=== PATIENT | female | born 1965 | race African-American/Black ===

== ENCOUNTER 2019-08-28 17:53 | Inpatient (IN) | payer BC, SELFPAY ==
--- NOTE | ~2019-08-28 | US_ITS ---
EXAMINATION: US venous doppler [facility] DATE: 08/28/2019 18:37 INDICATION: Left lower limb redness and swelling TECHNIQUE: Bell scale images without and with compression and Doppler images of the left lower extrem ity veins were obtained. COMPARISON: None FINDINGS: The left common femoral vein, profunda femoral vein, femoral vein, popliteal vein, peroneal trunk, posterior tibial veins, and greater saphenous vein are patent. Subcutaneous edema is noted. IMPRESSION: 1. Patent left lower extremity veins. No evidence of deep venous thrombosis. Reviewed, dictated and finalized at location A.
--- NOTE | ~2019-08-28 | US_ITS ---
EXAMINATION: US retroperitoneal duplex [facility]td DATE: 09/02/2019 10:02 CDT INDICATION: Renal artery stenosis. TECHNIQUE: Sonographic imaging of the kidneys was performed with a 3.5 MHz transducer. Retroperitone al duplex sonogram of the renal arteries also obtained. FINDINGS: No focal flow abnormalities are seen in the renal arteries on color Doppler. The peak syst olic velocities at the origin of the right and left renal arteries and aorta are 70 cm per second, 76 cm per second, and 70 cm per second, respectively. The velocities and renal to aortic ratios are wit hin normal limits. Percent renal echotexture is normal. Right kidney measures 9.9 cm in length. Left kidney measures 9.9 cm in length. IMPRESSION: 1. No Doppler evidence of renal artery stenosis. Reviewed, dictated and finalized at location A.
[2019-08-28 17:55] VITALS: BP 193/100; PULSE 93; RESP 20; TEMP 36.2; O2SAT 100
--- NOTE | 2019-08-28 18:12 | ED.EXTPRO ---
HPI - Extremity Problem General Chief complaint: Extremity Problem,Nontraumatic <Enoch Clark PA-C - Last Filed: 08/28/19 19:40> Stated complaint: left leg swelling <Enoch Clark PA-C - Last Filed: 08/28/19 19:40> Time Seen by Provider: 08/28/19 18:06 <Enoch Clark PA-C - Last Filed: 08/28/19 19:40> Source: patient <Enoch Clark PA-C - Last Filed: 08/28/19 19:40> Mode of arrival: ambulatory <Enoch Clark PA-C - Last Filed: 08/28/19 19:40> Limitations: no limitations <Enoch Clark PA-C - Last Filed: 08/28/19 19:40> History of Present Illness HPI Narrative: Patient is a 54-year-old female who presents to emergency department for evaluation of swelling to the left leg noting pressure in the leg with mild discomfort denies injury trauma or similar occurrence. Patient presents per private vehicle in no distress. Patient with history of kidney disease and hypertension. Patient denies any family history of clotting disorders . <Enoch Clark PA-C - Last Filed: 08/28/19 19:40> Related Data Home medications: Home Medications Medication Instructions Recorded Confirmed allopurinol 300 mg tablet 300 mg PO DAILY 05/19/19 folic acid 1 mg tablet 1 mg PO DAILY 05/19/19 leflunomide 20 mg tablet 20 mg PO DAILY 05/19/19 metformin 500 mg tablet 500 mg PO BID 05/19/19 diltiazem HCl PO 08/28/19 <Enoch Clark PA-C - Last Filed: 08/28/19 19:40> Allergies/Adverse reactions: Allergies Allergy/AdvReac Type Severity Reaction Status Date / Time No Known Allergies Allergy Verified 08/28/19 18:08 <Enoch Clark PA-C - Last Filed: 08/28/19 19:40> Review of Systems Review of Systems: All systems reviewed & are unremarkable except as noted in HPI and below <Enoch Clark PA-C - Last Filed: 08/28/19 19:40> PMFSH Past Medical History Medical History: Medical History (Updated 08/28/19 @ 19:28 by Enoch Clark PA-C) Chronic kidney disease Hypertension <Enoch Clark PA-C - Last Filed: 08/28/19 19:40> Family History Family History: Family History (Updated 12/02/15 @ 09:24 by DOCTOR UNKNOWN) Mother Diabetes mellitus Other Hypertension <Enoch Clark PA-C - Last Filed: 08/28/19 19:40> Social History Social History: Social History Smoking status: Former smoker Smoking end date: 04/09/92 Alcohol intake: current <Enoch Clark PA-C - Last Filed: 08/28/19 19:40> Exam Narrative: Exam Narrative: GENERAL: Well-appearing, well-nourished, and in no acute distress. HEAD: Normocephalic, atraumatic. EYES: PERRLA and EOMI. ENT: Nares clear, no rhinorrhea or epistaxis. Mucous membranes moist. CHEST: Clear to auscultation. No respiratory distress. No wheezes rales or rhonchi HEART: Regular rate and rhythm. No murmur heard. Normal peripheral pulses. ABDOMEN: Soft, nontender, nondistended EXTREMITIES: Swelling and tenderness of the left calf in comparison to the right with slight erythema over the balbuena SKIN: Warm, dry, no rash. NEURO: No focal deficits. Alert and oriented x3. Neurovascularly intact. Capillary refill less than 2 seconds. Strong dorsal pedialis and posterior tibialis pulses PSYCH: Normal mood and affect. <Enoch Clark PA-C - Last Filed: 08/28/19 19:40> Course Course Emergency Course: Patient in the room resting comfortably in no distress aware of case findings treatment plan and diagnosis agreeing to stay in hospital for IV therapy for her cellulitis <Enoch Clark PA-C - Last Filed: 08/28/19 19:40> [employer] DRIER OPERATOR/PA Physician Supervision For this patient encounter, I reviewed the [employer]OTHESPIN DRIER OPERATOR or PA documentation, treatment plan, and medical decision making; and I had [id number] time with this patient. PAtient is sitting in bed comfortably with left leg swelling with erythema. She is to be admitted for cellulitis.
[2019-08-28 18:55] LABS: Basophils Absolute Auto 0.1 K/mm3 (0.0-0.1); Basophils Percent Auto 0.5 % (0.2-1.2); Eosinophils Absolute Auto 0.3 K/mm3 (0-0.3); Eosinophils Percent Auto 2.7 % (0-4.4); Hematocrit 45.6 % (37.0-47.0); Hemoglobin 15.2 g/dL (12.0-15.0); Immature Granulocyte Absolute 0.04 K/mm3 (0.00-0.031); Immature Granulocyte Percent A 0.4 % (0-0.5); Lymphocytes Absolute Auto 0.92 K/mm3 (0.9-3.2); Lymphocytes Percent Auto 8.4 % (18.3-44.2); Mean Corpuscular HGB Conc 33.3 g/dl (32-36); Mean Corpuscular Hemoglobin 30.4 pg (26-34); Mean Corpuscular Volume 91.2 fl (80-100); Mean Platelet Volume 10.8 fl (7.4-10.4); Monocytes Absolute Auto 0.5 K/mm3 (0.1-0.6); Monocytes Percent Auto 4.2 % (2.6-8.5); Neutrophils Absolute Auto 9.2 K/mm3 (1.3-6.7); Neutrophils Percent Auto 83.8 % (45.5-73.1); Platelet Count Result 148 k/mm3 (150-375); Red Cell Distribution Width 13.2 % (11.5-14.5)
[2019-08-28 19:01] LABS: INR 0.9; Prothrombin Time 11.4 Seconds (11.1-14.7)
[2019-08-28 19:02] LABS: Partial Thromboplastin Time 25.8 SECONDS (22.3-36.8)
[2019-08-28 19:03] LABS: Blood Urea Nitrogen 22 mg/dL (7-17); Calcium 9.3 mg/dL (8.4-10.2); Carbon Dioxide 23 mmol/L (22-30); Chloride 107 mmol/L (98-107); Estimated CRCL calculation 35 ml/min; Estimated Glomerular Filt Rate 30; Glucose 101 mg/dL (65-105); Potassium 3.3 mmol/L (3.4-5.0); Sodium 139 mmol/L (137-145)
[2019-08-28] MEDS: SODIUM CHLORIDE 0.9% IV 1,000 ML 75 ML IV CONT (20:23)
[2019-08-28] MEDS: hydrALAZINE HCL 20 MG/ML VIAL 10 MG IV PUSH ×2 (20:34→22:19)
[2019-08-28 20:45] VITALS: BP 175/117; PULSE 88; RESP 18; TEMP 36.6; O2SAT 97; BMI 37.8
--- NOTE | 2019-08-28 21:07 | ADMGEN ---
This patient, Madhuri Benz, was admitted to [facility] Surg Room 302-01. Patient/family oriented to hospital policies and general routines including ID bracelet, bed and alarms, visiting hours, pain management, procedures, bathroom and other care routines, personal items, smoking policy, room service/diet, and visiting hours. Valuables list has been completed. Information on how to activate the Rapid Response Team has been discussed. Patient/Family are encouraged to report perceived risks to care and to ask questions if they do not understand what they are told or what they should do.
[2019-08-28] MEDS: FAMOTIDINE 20 MG/2 ML VIAL IV PUSH (21:28)
--- NOTE | 2019-08-28 21:48 | PM.IMHP ---
H&P: HPI History of Present Illness Chief complaint: LLE swelling and redness++ Narrative: This is a 54 year old Diabetic female with known HTN, hypothyroidism and CKD who presented to the hospital with a complaint of left lower extremity swelling which started yesterdaywhile she was at work. She initially noted that she had discomfort on the lateral side of her LLE. The patient called her PCP's office and was told that her PCP wouldn't be seeing any patients until October. She was advised to come to the ER for evaluation. She reports that last night she put a heating pad on her leg. Today she noticed she has redness involving the anterior aspect of her lower leg. She denies any recent LLE trauma. She also denies any fevers, chills, chest pain, shortness of breath, nausea, vomiting, diarrhea, dysuria, Routine labs were obtained in the ER tonight which were virtually unremarkable. Venous doppler U/S was negative for a DVT. The patient was started on IV antibiotics for presumed cellulitis and we were asked to admit the patient to the hospital for further care. Review of Systems Review of Systems: All systems reviewed & are unremarkable except as noted in HPI and below PMFSH Past Medical History Medical History Chronic kidney disease Diabetes mellitus Hypertension Family History Family History Mother Diabetes mellitus Other Hypertension Social History Social History Smoking packs per day: 0.5 Smoking cigarettes per day: 10.0 Years smoked: 6 Smoking pack-years: 3.00 Smoking status: Former smoker Tobacco type: cigarettes Second hand tobacco smoke exposure: No Smoking end date: 04/09/92 Alcohol intake: never Substance use: never Gender identity (if verbalized by the patient): Female Spiritual care concerns: No Comments Past surgical history reviewed and noncontributory. Meds Home Medications and Allergies Home Medications Medication Instructions Recorded Confirmed Type allopurinol 300 mg tablet 300 mg PO DAILY 05/19/19 08/28/19 History leflunomide 20 mg tablet 20 mg PO DAILY 05/19/19 08/28/19 History levothyroxine 50 mcg tablet 50 mcg PO DAILY #90 tablet 05/19/19 08/28/19 Rx metformin 500 mg tablet 500 mg PO BID 05/19/19 08/28/19 History lisinopril 40 mg tablet 60 mg PO DAILY #135 tablet 07/15/19 08/28/19 Rx diltiazem HCl 360 mg PO DAILY 08/28/19 08/28/19 History Allergies Allergy/AdvReac Type Severity Reaction Status Date / Time No Known Allergies Allergy Verified 08/28/19 18:08 Vital Signs Vital Signs - 24 hr 08/28/19 17:55 08/28/19 20:45 Temperature 36.2 C L 36.6 C Pulse Rate 93 88 Respiratory Rate 20 18 Blood Pressure 193/100 H 175/117 H Pulse Oximetry 100 97 Exam Const: General: no acute distress, alert and awake Nutritional Appearance: obese morbidly obese Orientation/consciousness: patient oriented x3 HENMT: Head: normal to inspection General nose exam: Normal external nose present Face and sinus: normal facial exam Mouth: Yes Normal oral and palatal mucosa present and Yes oropharynx normal Eyes: Pupils: Equal, round and reactive pupils present EOM: EOMs intact bilaterally Neck: Neck: supple and no JVD Thyroid: thyroid normal Lymphatic: lymphadenopathy not noted Resp: Effort & Inspection: normal respiratory effort Auscultation: clear to auscultation bilaterally Cardio: Rate: regular rate Rhythm: regular rhythm Heart sounds: no murmurs GI: Inspection: normal to inspection Auscultation: normal bowel sounds Skin: General skin exam: erythema (Mild erythema of anterior balbuena of LLE++) Neuro: General: patient oriented x3 Cranial nerves: Yes CN's II-XII intact bilaterally and Yes Equal, round and reactive pupils present Speech: normal speech Motor exam (neuro): 5/5 motor strength
[2019-08-28 22:18] VITALS: BP 181/102; PULSE 93
[2019-08-28] MEDS: POTASSIUM CHLORIDE 20 MEQ TABLET PO (22:19)
[2019-08-29] VITALS (11 sets, daily range): BP systolic 150–200; BP diastolic 88–129; PULSE 90–103; RESP 16–18; TEMP 36.6–36.9; O2SAT 94–97
[2019-08-29] MEDS: LABETALOL HCL INJ 100 MG/20 ML VIAL 10 MG IV PUSH (02:25)
[2019-08-29 04:20] LABS: Glucose Point of Care 97 (65-105)
[2019-08-29] MEDS: LEVOTHYROXINE SODIUM 50 MCG TABLET PO (05:46)
[2019-08-29 06:28] LABS: Basophils Percent Auto 0.4 % (0.2-1.2); Eosinophils Absolute Auto 0.3 K/mm3 (0-0.3); Eosinophils Percent Auto 3.5 % (0-4.4); Hematocrit 43.4 % (37.0-47.0); Hemoglobin 14.1 g/dL (12.0-15.0); Immature Granulocyte Absolute 0.02 K/mm3 (0.00-0.031); Immature Granulocyte Percent A 0.2 % (0-0.5); Immature Platelet Fraction Pct 5.2 % (0.9-11.2); Lymphocytes Absolute Auto 1.03 K/mm3 (0.9-3.2); Lymphocytes Percent Auto 10.6 % (18.3-44.2); Mean Corpuscular HGB Conc 32.5 g/dl (32-36); Mean Corpuscular Hemoglobin 30.5 pg (26-34); Mean Corpuscular Volume 93.7 fl (80-100); Mean Platelet Volume 11.7 fl (7.4-10.4); Monocytes Absolute Auto 0.6 K/mm3 (0.1-0.6); Monocytes Percent Auto 5.9 % (2.6-8.5); Neutrophils Absolute Auto 7.7 K/mm3 (1.3-6.7); Neutrophils Percent Auto 79.4 % (45.5-73.1); Platelet Count Result 137 k/mm3 (150-375); Red Blood Count 4.63 M/mm3 (4.2-5.4); Red Cell Distribution Width 13.5 % (11.5-14.5); White Blood Count 9.7 K/mm3 (4.5-10.0)
[2019-08-29 06:40] LABS: Blood Urea Nitrogen 21 mg/dL (7-17); Calcium 8.8 mg/dL (8.4-10.2); Carbon Dioxide 26 mmol/L (22-30); Chloride 110 mmol/L (98-107); Estimated CRCL calculation 41 ml/min; Estimated Glomerular Filt Rate 35; Glucose 104 mg/dL (65-105); Potassium 3.6 mmol/L (3.4-5.0); Sodium 138 mmol/L (137-145)
[2019-08-29] MEDS: hydrALAZINE HCL 20 MG/ML VIAL 10 MG IV PUSH ×3 (06:53→21:50)
[2019-08-29] MEDS: LEFLUNOMIDE 20 MG TABLET PO (10:26)
[2019-08-29] MEDS: allopurinoL 300 MG TABLET PO (10:26)
[2019-08-29] MEDS: ENOXAPARIN 40 MG/0.4 ML SYRINGE SUB-Q (10:26)
[2019-08-29] MEDS: FAMOTIDINE 20 MG/2 ML VIAL IV PUSH ×2 (10:26→21:37)
[2019-08-29 11:34] LABS: Glucose Point of Care 134 (65-105)
[2019-08-29 11:46] LABS: Glucose Point of Care 96 (65-105)
--- NOTE | 2019-08-29 14:19 | PM.IMPN ---
Progress Note: A&P Assessment and Plan (1) Swelling of lower extremity: Code(s): M79.89 - Other specified soft tissue disorders Status: Acute Assessment and Plan: r/o developing cellulitis vs. venous insufficiency. Pain control as needed overnight. Continue IV antibiotics await blood cultures (2) Acute on chronic renal failure: Qualifiers: Acute renal failure type: unspecified Chronic kidney disease stage: stage 3 (moderate) Qualified Code(s): N17.9 - Acute kidney failure, unspecified; N18.3 - Chronic kidney disease, stage 3 (moderate) Code(s): N17.9 - Acute kidney failure, unspecified; N18.9 - Chronic kidney disease, unspecified Status: Acute Assessment and Plan: Continue IV fluid challenge overnight. Monitor renal function and urine output. Renally dose medicaitons. Avoid nephrotoxic agents. (3) Hypokalemia: Code(s): E87.6 - Hypokalemia Status: Resolved Assessment and Plan: Monitor potassium and replace as needed. (4) Diabetes mellitus: Qualifiers: Diabetes mellitus type: type 2 Diabetes mellitus correction insulin use: without remote computer terminal operator use Diabetes mellitus complication status: without complication Qualified Code(s): E11.9 - Type 2 diabetes mellitus without complications Code(s): E11.9 - Type 2 diabetes mellitus without complications Status: Chronic Assessment and Plan: Accuchecks, sSI Coverage, hypoglycemic protocol. Hold metformin secondary to acute renal failure. (5) Arthritis: Code(s): M19.90 - Unspecified osteoarthritis, unspecified site Status: Chronic Assessment and Plan: Continue leflunomide. (6) Hypertension: Qualifiers: Hypertension type: unspecified Qualified Code(s): I10 - Essential (primary) hypertension Code(s): I10 - Essential (primary) hypertension Status: Chronic Assessment and Plan: Hold lisinopril secondary to acute renal failure. Monitor blood pressure. Continue diltiazem. Subjective Date/time seen: 08/29/19 14:19 Interval history: 54 year old Diabetic female with known HTN, hypothyroidism and CKD who presented to the hospital with a complaint of left lower extremity swelling which started yesterday while she was at work.Venous doppler negative for DVT , currently treated for leg cellulitis Review of Systems Review of Systems: All systems reviewed & are unremarkable except as noted in HPI and below Exam Const: General: no acute distress, alert and awake Nutritional Appearance: obese morbidly obese Orientation/consciousness: patient oriented x3 Resp: Effort & Inspection: normal respiratory effort Auscultation: clear to auscultation bilaterally Cardio: Rate: regular rate Rhythm: regular rhythm Heart sounds: no murmurs GI: Inspection: normal to inspection Auscultation: normal bowel sounds Skin: General skin exam: erythema (Mild erythema of anterior balbuena of LLE++) Neuro: General: patient oriented x3 Cranial nerves: Yes CN's II-XII intact bilaterally and Yes Equal, round and reactive pupils present Speech: normal speech Motor exam (neuro): 5/5 motor strength present throughout Sensory Exam: normal sensation Objective Data Vital Signs Vital Signs: Vital Signs - 24 hr 08/28/19 17:55 08/28/19 20:45 08/28/19 22:18 Temperature 36.2 C L 36.6 C Pulse Rate 93 88 93 Respiratory Rate 20 18 Blood Pressure 193/100 H 175/117 H 181/102 H Pulse Oximetry 100 97 08/29/19 00:25 08/29/19 01:57 08/29/19 02:25 Temperature Pulse Rate 93 98 Respiratory Rate Blood Pressure 150/101 H 165/107 H Pulse Oximetry 94 08/29/19 04:15 08/29/19 06:52 Temperature 36.9 C Pulse Rate 98 90 Respiratory Rate 18 Blood Pressure 157/111 H 164/109 H Pulse Oximetry 97 Intake/Output Intake/Output: Intake & Output 08/26/19 08/27/19 08/28/19 08/29/19 23:59 23:59 23:59 23:59 Intake Total 42 880 Output Total
[2019-08-29] MEDS: ONDANSETRON INJ 4 MG/2 ML VIAL IV PUSH (15:04)
[2019-08-29 16:24] LABS: Glucose Point of Care 147 (65-105)
[2019-08-29 22:30] LABS: Glucose Point of Care 132 (65-105)
[2019-08-29] MEDS: LABETALOL HCL INJ 100 MG/20 ML VIAL 20 MG IV PUSH (22:36)
[2019-08-30] VITALS (9 sets, daily range): BP systolic 150–194; BP diastolic 102–118; PULSE 92–108; RESP 14–18; TEMP 36.3–36.9; O2SAT 94–98
[2019-08-30] MEDS: LEVOTHYROXINE SODIUM 50 MCG TABLET PO (05:38)
[2019-08-30] MEDS: hydrALAZINE HCL 20 MG/ML VIAL 10 MG IV PUSH ×3 (05:47→23:03)
[2019-08-30] MEDS: LABETALOL HCL INJ 100 MG/20 ML VIAL 20 MG IV PUSH (06:36)
[2019-08-30 06:47] LABS: Hemoglobin 15.1 g/dL (12.0-15.0); Mean Corpuscular HGB Conc 32.8 g/dl (32-36); Mean Corpuscular Hemoglobin 30.8 pg (26-34); Mean Corpuscular Volume 93.7 fl (80-100); Mean Platelet Volume 11.6 fl (7.4-10.4); Platelet Count Result 146 k/mm3 (150-375); Red Blood Count 4.91 M/mm3 (4.2-5.4); Red Cell Distribution Width 13.5 % (11.5-14.5); White Blood Count 8.5 K/mm3 (4.5-10.0)
[2019-08-30 07:07] LABS: Blood Urea Nitrogen 18 mg/dL (7-17); Carbon Dioxide 25 mmol/L (22-30); Chloride 108 mmol/L (98-107); Estimated CRCL calculation 43 ml/min; Estimated Glomerular Filt Rate 38; Glucose 118 mg/dL (65-105); Potassium 3.5 mmol/L (3.4-5.0); Sodium 138 mmol/L (137-145)
[2019-08-30] MEDS: ENOXAPARIN 40 MG/0.4 ML SYRINGE SUB-Q (08:14)
[2019-08-30] MEDS: FAMOTIDINE 20 MG/2 ML VIAL IV PUSH ×2 (08:14→21:24)
[2019-08-30] MEDS: allopurinoL 300 MG TABLET PO (08:14)
[2019-08-30] MEDS: LEFLUNOMIDE 20 MG TABLET PO (08:14)
[2019-08-30 08:25] LABS: Glucose Point of Care 104 (65-105)
[2019-08-30 11:28] LABS: Glucose Point of Care 111 (65-105)
--- NOTE | 2019-08-30 15:01 | PM.IMPN ---
Progress Note: A&P Assessment and Plan (1) Swelling of lower extremity: Code(s): M79.89 - Other specified soft tissue disorders Status: Acute Assessment and Plan: r/o developing cellulitis vs. venous insufficiency. Pain control as needed overnight. Continue IV antibiotics await blood cultures (2) Acute on chronic renal failure: Qualifiers: Acute renal failure type: unspecified Chronic kidney disease stage: stage 3 (moderate) Qualified Code(s): N17.9 - Acute kidney failure, unspecified; N18.3 - Chronic kidney disease, stage 3 (moderate) Code(s): N17.9 - Acute kidney failure, unspecified; N18.9 - Chronic kidney disease, unspecified Status: Acute Assessment and Plan: Continue IV fluid challenge overnight. Monitor renal function and urine output. Renally dose medications. Avoid nephrotoxic agents. (3) Hypokalemia: Code(s): E87.6 - Hypokalemia Status: Resolved Assessment and Plan: Monitor potassium and replace as needed. (4) Diabetes mellitus: Qualifiers: Diabetes mellitus type: type 2 Diabetes mellitus fpc insulin use: without fpc use Diabetes mellitus complication status: without complication Qualified Code(s): E11.9 - Type 2 diabetes mellitus without complications Code(s): E11.9 - Type 2 diabetes mellitus without complications Status: Chronic Assessment and Plan: Accuchecks, sSI Coverage, hypoglycemic protocol. restart metformin on discharge (5) Arthritis: Code(s): M19.90 - Unspecified osteoarthritis, unspecified site Status: Chronic Assessment and Plan: Continue leflunomide. (6) Hypertension: Qualifiers: Hypertension type: unspecified Qualified Code(s): I10 - Essential (primary) hypertension Code(s): I10 - Essential (primary) hypertension Status: Chronic Assessment and Plan: creat is 1.7 continue lisinopril. Monitor blood pressure. Continue diltiazem. Subjective Date/time seen: 08/30/19 15:01 Interval history: 54 year old Diabetic female with known HTN, hypothyroidism and CKD who presented to the hospital with a complaint of left lower extremity swelling which started yesterday while she was at work.Venous doppler negative for DVT , currently treated for leg cellulitis hopeful discharge tomorrow as leg is looking better. Bp very high today. Review of Systems Review of Systems: All systems reviewed & are unremarkable except as noted in HPI and below Exam Const: General: no acute distress, alert and awake Nutritional Appearance: obese morbidly obese Orientation/consciousness: patient oriented x3 HENMT: Head: normal to inspection General nose exam: Normal external nose present Face and sinus: normal facial exam Mouth: Yes Normal oral and palatal mucosa present and Yes oropharynx normal Eyes: Pupils: Equal, round and reactive pupils present EOM: EOMs intact bilaterally Neck: Neck: supple and no JVD Thyroid: thyroid normal Lymphatic: lymphadenopathy not noted Resp: Effort & Inspection: normal respiratory effort Auscultation: clear to auscultation bilaterally Cardio: Rate: regular rate Rhythm: regular rhythm Heart sounds: no murmurs GI: Inspection: normal to inspection Auscultation: normal bowel sounds Skin: General skin exam: erythema (Mild erythema of anterior balbuena of LLE++) Neuro: General: patient oriented x3 Cranial nerves: Yes CN's II-XII intact bilaterally and Yes Equal, round and reactive pupils present Speech: normal speech Motor exam (neuro): 5/5 motor strength present throughout Sensory Exam: normal sensation Extrem: General: normal to inspection and edema left Psych: Mental Status: mental status grossly normal Affect: normal affect Objective Data Vital Signs Vital Signs: Vital Signs - 24 hr 08/29/19 16:23 08/29/19 22:00 08/29/19 22:30 Temperature 36.6 C Pulse Rate 103 H Respiratory Rate 1
[2019-08-30 16:44] LABS: Glucose Point of Care 151 (65-105)
[2019-08-31] VITALS (11 sets, daily range): BP systolic 156–200; BP diastolic 95–128; PULSE 86–107; RESP 16–22; TEMP 36.3–37.4; O2SAT 95–99
[2019-08-31] MEDS: LABETALOL HCL INJ 100 MG/20 ML VIAL 10 MG IV PUSH (00:14)
[2019-08-31] MEDS: LEVOTHYROXINE SODIUM 50 MCG TABLET PO (05:47)
[2019-08-31] MEDS: hydrALAZINE HCL 20 MG/ML VIAL 10 MG IV PUSH (06:25)
[2019-08-31] MEDS: ENOXAPARIN 40 MG/0.4 ML SYRINGE SUB-Q (08:04)
[2019-08-31] MEDS: allopurinoL 300 MG TABLET PO (08:05)
[2019-08-31] MEDS: lisinopriL 20 MG TABLET 40 MG PO (08:05)
[2019-08-31] MEDS: FAMOTIDINE 20 MG/2 ML VIAL IV PUSH (08:05)
[2019-08-31] MEDS: LEFLUNOMIDE 20 MG TABLET PO (08:05)
[2019-08-31] MEDS: METOPROLOL TARTRATE 25 MG TABLET PO ×2 (10:20→21:48)
[2019-08-31 11:48] LABS: Glucose Point of Care 134 (65-105)
--- NOTE | 2019-08-31 14:54 | PM.IMPN ---
Progress Note: A&P Assessment and Plan (1) Swelling of lower extremity: Code(s): M79.89 - Other specified soft tissue disorders Status: Acute Assessment and Plan: r/o developing cellulitis vs. venous insufficiency. Pain control as needed overnight. Continue IV antibiotics await blood cultures (2) Acute on chronic renal failure: Qualifiers: Acute renal failure type: unspecified Chronic kidney disease stage: stage 3 (moderate) Qualified Code(s): N17.9 - Acute kidney failure, unspecified; N18.3 - Chronic kidney disease, stage 3 (moderate) Code(s): N17.9 - Acute kidney failure, unspecified; N18.9 - Chronic kidney disease, unspecified Status: Acute Assessment and Plan: Monitor renal function and urine output. (3) Hypokalemia: Code(s): E87.6 - Hypokalemia Status: Resolved Assessment and Plan: (4) Diabetes mellitus: Qualifiers: Diabetes mellitus type: type 2 Diabetes mellitus intermediate insulin use: without intermediate use Diabetes mellitus complication status: without complication Qualified Code(s): E11.9 - Type 2 diabetes mellitus without complications Code(s): E11.9 - Type 2 diabetes mellitus without complications Status: Chronic Assessment and Plan: Accuchecks, sSI Coverage, hypoglycemic protocol. restart metformin on discharge (5) Arthritis: Code(s): M19.90 - Unspecified osteoarthritis, unspecified site Status: Chronic Assessment and Plan: Continue leflunomide. (6) Hypertension: Qualifiers: Hypertension type: unspecified Qualified Code(s): I10 - Essential (primary) hypertension Code(s): I10 - Essential (primary) hypertension Status: Chronic Assessment and Plan: Bp extremely high for 2 days lisinopril increased clonodine added pt also has iv hydralazine, diltazem and metoprolol for high BPs Subjective Date/time seen: 08/31/19 14:54 Interval history: 54 year old Diabetic female with known HTN, hypothyroidism and CKD who presented to the hospital with a complaint of left lower extremity swelling which started yesterday while she was at work.Venous doppler negative for DVT, currently treated for leg cellulitis. Bp very high yesterday and today. Review of Systems Review of Systems: All systems reviewed & are unremarkable except as noted in HPI and below Exam Const: General: no acute distress, alert and awake Nutritional Appearance: obese morbidly obese Orientation/consciousness: patient oriented x3 HENMT: Head: normal to inspection General nose exam: Normal external nose present Face and sinus: normal facial exam Mouth: Yes Normal oral and palatal mucosa present and Yes oropharynx normal Eyes: Pupils: Equal, round and reactive pupils present EOM: EOMs intact bilaterally Neck: Neck: supple and no JVD Thyroid: thyroid normal Lymphatic: lymphadenopathy not noted Resp: Effort & Inspection: normal respiratory effort Auscultation: clear to auscultation bilaterally Cardio: Rate: regular rate Rhythm: regular rhythm Heart sounds: no murmurs GI: Inspection: normal to inspection Auscultation: normal bowel sounds Skin: General skin exam: other (Left leg much less swollen and red ) Neuro: General: patient oriented x3 Cranial nerves: Yes CN's II-XII intact bilaterally and Yes Equal, round and reactive pupils present Speech: normal speech Motor exam (neuro): 5/5 motor strength present throughout Sensory Exam: normal sensation Extrem: General: normal to inspection and edema left Psych: Mental Status: mental status grossly normal Affect: normal affect Objective Data Vital Signs Vital Signs: Vital Signs - 24 hr 08/30/19 16:00 08/30/19 16:30 08/30/19 17:30 Temperature Pulse Rate Respiratory Rate Blood Pressure 178/118 H 178/118 H 150/110 H Pulse Oximetry 08/30/19 18:43 08/30/19 22:00 08/31/19 00:00 Temperature
--- NOTE | 2019-08-31 15:46 | PM.CNNEP ---
Assessment and Plan Assessment and plan (1) Chronic kidney disease, stage 3: Code(s): N18.3 - Chronic kidney disease, stage 3 (moderate) Status: Acute (2) Cellulitis of left leg: Code(s): L03.116 - Cellulitis of left lower limb Status: Acute (3) Hypertension: Qualifiers: Hypertension type: unspecified Qualified Code(s): I10 - Essential (primary) hypertension Code(s): I10 - Essential (primary) hypertension Status: Chronic (4) Diabetes mellitus: Qualifiers: Diabetes mellitus type: type 2 Diabetes mellitus senior care insulin use: without senior care use Diabetes mellitus complication status: without complication Qualified Code(s): E11.9 - Type 2 diabetes mellitus without complications Code(s): E11.9 - Type 2 diabetes mellitus without complications Status: Chronic Assessment and Plan: . Additional Plan Madhuri has chronic kidney disease. Her creatinine had been running ~1.3 - 1.6mg/dl in the last few years but in the last 6 months, it now seems to be running in the 1.7 - 1.85mg/dl range. Her last outpatient labs I have are from July 2019 with a creatinine of 1.71mg/dl. I suspect this higher creatinine is a manifesation of disease progression possibly from her diabetes but I suspect more from her hypertension given readings during this hospitalization. Her CKD is complicated by proteinuria that fluctuates from nephrotic to sub-nephrotic range as well. ? Her renal function is relatively stable at this time but I am concerned about her high BP readings/hypertension. She is already on full dose lisinopril along with diltiazem (both of which help with BP control as well as proteinuria). She was started on a clonidine patch as well but since her BP still remains elevated, I would switch her metoprolol to labetalol. I will follow the trend of her blood pressure readings with this medication change in make further adjustments based on her hospital course. Thank you for allowing me to participate in the care this patient.? History of Present Illness Reason for Consult Consult date: 08/31/19 Reason for consult: chronic renal failure Chief Complaint Chief complaint: Cellulitis left lower extremity History of Present Illness Narrative: The patient is a 54 year old female with a past medical history as outlined below who presented to [facility] ER with complaints of left lower extremity swelling/erythema. The symptoms started a day before admission when she noticed this at work. Iinitially, she had some discomfort on the lateral side of her left leg. She attempted to see her PCP about this issue but was unable to do this given the PCP was not seeing pateint at this time (due to COVID-19?) so she was told to go to the ER for further evaluation. She then noted some redness on the anterior aspect of her leg leg but denied any fevers, chills, nause, vomiting, diarrhea, or left lower extremity trauma. Workup and evaluation emergency room did demonstrate the a for mention swelling edema in her left lower extremity and routine blood tests were done which were unremarkable. A venous Doppler of the left lower extremity was negative for DVT and given her history of diabetes there was concern that this may represent an early cellulitis. Appropriate cultures were obtained and she was started on IV antibiotic therapy and subsequently to the hospital for further evaluation and therapy. Renal consultation was requested due to her chronic kidney disease. The official consult was for acute kidney injury on her chronic kidney disease but her kidney disease actually appears to be relatively stable at this time. The patient is well known to me as I see her in my outpatient clinic for chronic kidney disease management. For last to reach 3 years her baseline creatinine has run anywhere from 1.3-1.6 mg/dL although more recently in the last 6 months it is in Renal but hig
[2019-08-31 16:17] LABS: Glucose Point of Care 127 (65-105)
[2019-08-31 16:17] LABS: Glucose Point of Care 103 (65-105)
[2019-08-31 22:09] LABS: Glucose Point of Care 138 (65-105)
[2019-09-01] VITALS (11 sets, daily range): BP systolic 178–218; BP diastolic 116–140; PULSE 80–94; RESP 16–18; TEMP 36.1–36.9; O2SAT 97–100
[2019-09-01] MEDS: hydrALAZINE HCL 20 MG/ML VIAL 10 MG IV PUSH (02:44)
[2019-09-01] MEDS: LEVOTHYROXINE SODIUM 50 MCG TABLET PO (06:47)
[2019-09-01] MEDS: LABETALOL HCL 100 MG TABLET PO (08:48)
[2019-09-01] MEDS: LEFLUNOMIDE 20 MG TABLET PO (08:48)
[2019-09-01] MEDS: lisinopriL 20 MG TABLET 40 MG PO (08:49)
[2019-09-01] MEDS: allopurinoL 300 MG TABLET PO (08:50)
[2019-09-01] MEDS: ENOXAPARIN 40 MG/0.4 ML SYRINGE SUB-Q (09:00)
--- NOTE | 2019-09-01 11:00 | P.PNNP_ITS ---
Progress Note: A&P Assessment and Plan (1) Chronic kidney disease, stage 3: Code(s): N18.3 - Chronic kidney disease, stage 3 (moderate) Status: Acute Assessment and Plan: * creatinine had been running ~ 1.3 - 1.6mg/dl in the last few years * however, in the last 6 - 7 months, running closer to 1.7 - 1.8mg/dl * suspicion falls on some degree of CKD progression * etiology of CKD due to HTN, vascular disease with some contributions from DM (2) Cellulitis of left leg: Code(s): L03.116 - Cellulitis of left lower limb Status: Acute Assessment and Plan: * clinical improvement noted with current therapy * continues supportive care (3) Hypertension: Qualifiers: Hypertension type: unspecified Qualified Code(s): I10 - Essential (primary) hypertension Code(s): I10 - Essential (primary) hypertension Status: Chronic Assessment and Plan: * extremely elevated and difficult to control * switched metoprolol for labetalol but just started today * already on full dose CIERRA-I along with CCB (diltiazem) - both of which should help with her proteinuria * will check renal duplex to r/o renal artery stenosis * follow trend of hemodynamics (4) Diabetes mellitus: Qualifiers: Diabetes mellitus complication status: without complication Diabetes mellitus prison insulin use: without prison use Diabetes mellitus type: type 2 Qualified Code(s): E11.9 - Type 2 diabetes mellitus without complications Code(s): E11.9 - Type 2 diabetes mellitus without complications Status: Chronic Assessment and Plan: * follow accuchecks * on SSI Subjective Date/time seen: 09/01/19 11:00 Left leg seems to be improving if not back to baseline; BP still elevated but medication change started today (labetalol instead of metoprolol); no acute distress voiced at this time. Exam 2 Narrative: Exam Narrative: General: WD/WN AA female in NAD Heart: normal S1 and S2; no rub Lungs: clear to auscultation Abdomen: soft, nontender, nondistended, positive bowel sounds Extremities: no cyanosis or clubbing; no edema Skin: warm and dry Objective Data Vital Signs Vital Signs: Vital Signs Temp Pulse Resp BP Pulse Ox 09/01/19 08:48 88 09/01/19 06:00 36.8 C 94 16 178/120 H 99 05/25/20 02:00 36.9 C 86 16 188/116 H 99 08/31/19 22:00 36.4 C L 95 16 192/128 H 97 08/31/19 21:48 95 08/31/19 21:00 37.4 C 86 16 156/95 H 95 08/31/19 18:39 172/114 H 08/31/19 14:00 36.6 C 100 18 200/126 H 97 Intake/Output Intake/Output: Intake & Output 08/29/19 08/30/19 08/31/19 09/01/19 23:59 23:59 23:59 23:59 Intake Total 2180 1410 1600 540 Output Total 1500 1100 1250 350 Balance 680 310 350 190 Meds/Results Medications: Active Medications Generic Name Dose Route Start Last Admin Trade Name Freq PRN Reason Stop Dose Admin Hydrocodone Bitart/Acetaminophen 1 tab 08/28/19 22:01 09/01/19 06:45 [place] 5-325 Mg PO 1 tab Q4H PRN Administration Moderate Pain (4-6) Allopurinol 300 mg 08/29/19 09:00 09/01/19 08:50 Zyloprim PO 300 mg DAILY LUNA Administration Clonidine HCl 1 patch 08/31/19 16:15 08/31/19 16:18 Catapres-Tt
--- NOTE | 2019-09-01 11:00 | PM.PNNEP ---
Progress Note: A&P Assessment and Plan (1) Chronic kidney disease, stage 3: Code(s): N18.3 - Chronic kidney disease, stage 3 (moderate) Status: Acute Assessment and Plan: creatinine had been running ~ 1.3 - 1.6mg/dl in the last few years however, in the last 6 - 7 months, running closer to 1.7 - 1.8mg/dl suspicion falls on some degree of CKD progression etiology of CKD due to HTN, vascular disease with some contributions from DM (2) Cellulitis of left leg: Code(s): L03.116 - Cellulitis of left lower limb Status: Acute Assessment and Plan: clinical improvement noted with current therapy continues supportive care (3) Hypertension: Qualifiers: Hypertension type: unspecified Qualified Code(s): I10 - Essential (primary) hypertension Code(s): I10 - Essential (primary) hypertension Status: Chronic Assessment and Plan: extremely elevated and difficult to control switched metoprolol for labetalol but just started today already on full dose CIERRA-I along with CCB (diltiazem) - both of which should help with her proteinuria will check renal duplex to r/o renal artery stenosis follow trend of hemodynamics (4) Diabetes mellitus: Qualifiers: Diabetes mellitus complication status: without complication Diabetes mellitus long goods drier insulin use: without long goods drier use Diabetes mellitus type: type 2 Qualified Code(s): E11.9 - Type 2 diabetes mellitus without complications Code(s): E11.9 - Type 2 diabetes mellitus without complications Status: Chronic Assessment and Plan: follow accuchecks on SSI Subjective Date/time seen: 09/01/19 11:00 Left leg seems to be improving if not back to baseline; BP still elevated but medication change started today (labetalol instead of metoprolol); no acute distress voiced at this time. Exam Narrative: Exam Narrative: General: WD/WN AA female in NAD Heart: normal S1 and S2; no rub Lungs: clear to auscultation Abdomen: soft, nontender, nondistended, positive bowel sounds Extremities: no cyanosis or clubbing; no edema Skin: warm and dry Objective Data Vital Signs Vital Signs: Vital Signs Temp Pulse Resp BP Pulse Ox 09/01/19 08:48 88 09/01/19 06:00 36.8 C 94 16 178/120 H 99 09/01/19 02:00 36.9 C 86 16 188/116 H 99 08/31/19 22:00 36.4 C L 95 16 192/128 H 97 08/31/19 21:48 95 08/31/19 21:00 37.4 C 86 16 156/95 H 95 08/31/19 18:39 172/114 H 08/31/19 14:00 36.6 C 100 18 200/126 H 97 Intake/Output Intake/Output: Intake & Output 08/29/19 08/30/19 08/31/19 09/01/19 23:59 23:59 23:59 23:59 Intake Total 2180 1410 1600 540 Output Total 1500 1100 1250 350 Balance 680 310 350 190 Meds/Results Medications: Active Medications Generic Name Dose Route Start Last Admin Trade Name Freq PRN Reason Stop Dose Admin Hydrocodone Bitart/Acetaminophen 1 tab 08/28/19 22:01 09/01/19 06:45 [place] 5-325 Mg PO 1 tab Q4H PRN Administration Moderate Pain (4-6) Allopurinol 300 mg 08/29/19 09:00 09/01/19 08:50 Zyloprim PO 300 mg DAILY LUNA Administration Clonidine HCl 1 patch 08/31/19 16:15 08/31/19 16:18 [id number] TRANSDERM 1 patch WEEKLY LUNA Administration Dextrose 12.5 gm 08/28/19 22:02 Dextrose 50% Syringe IV PUSH PRN PRN Hypoglycemia Protocol Diltiazem HCl 360 mg 08/29/19 09:00 09/01/19 08:49 Cardizem Cd PO 360 mg DAILY LUNA Administration Enoxaparin Sodium 40 mg 08/29/19 09:00 08/31/19 08:04 Lovenox SUB-Q 40 mg DAILY LUNA Administration Glucagon 1 mg 08/28/19 22:02 Glucagon For Inj IM PRN PRN Hypoglycemia Protocol Glucose 15 gm 08/28/19 22:02 Glutose 15 PO PRN PRN Hypoglycemia Protocol Hydralazine HCl 10 mg 08/30/19 14:54 09/01/19 02:44 Apresoline Hcl Inj IV PUSH 10 mg Q8H PRN Administrati
--- NOTE | 2019-09-01 11:43 | PM.IMPN ---
Progress Note: A&P Assessment and Plan (1) Swelling of lower extremity: Code(s): M79.89 - Other specified soft tissue disorders Status: Acute Assessment and Plan: r/o developing cellulitis vs. venous insufficiency. Pain control as needed overnight. Change to oral ABX (2) Acute on chronic renal failure: Qualifiers: Acute renal failure type: unspecified Chronic kidney disease stage: stage 3 (moderate) Qualified Code(s): N17.9 - Acute kidney failure, unspecified; N18.3 - Chronic kidney disease, stage 3 (moderate) Code(s): N17.9 - Acute kidney failure, unspecified; N18.9 - Chronic kidney disease, unspecified Status: Acute Assessment and Plan: Monitor renal function and urine output. (3) Hypokalemia: Code(s): E87.6 - Hypokalemia Status: Resolved Assessment and Plan: (4) Diabetes mellitus: Qualifiers: Diabetes mellitus type: type 2 Diabetes mellitus halfway insulin use: without ocean transportation intermediary use Diabetes mellitus complication status: without complication Qualified Code(s): E11.9 - Type 2 diabetes mellitus without complications Code(s): E11.9 - Type 2 diabetes mellitus without complications Status: Chronic Assessment and Plan: Accuchecks, sSI Coverage, hypoglycemic protocol. restart metformin on discharge (5) Arthritis: Code(s): M19.90 - Unspecified osteoarthritis, unspecified site Status: Chronic Assessment and Plan: Continue leflunomide. (6) Hypertension: Qualifiers: Hypertension type: unspecified Qualified Code(s): I10 - Essential (primary) hypertension Code(s): I10 - Essential (primary) hypertension Status: Chronic Assessment and Plan: Bp extremely high for 2 days lisinopril increased clonodine added pt also has iv hydralazine, diltazem and metoprolol for high BPs. Pt needs more Bp control and renal US Subjective Date/time seen: 09/01/19 11:43 Interval history: 54 year old Diabetic female with known HTN, hypothyroidism and CKD who presented to the hospital with a complaint of left lower extremity swelling which started yesterday while she was at work. Venous doppler negative for DVT, currently treated for leg cellulitis. Bp very high yesterday and today. Nephrology recommends renal doppler, Bp still high today 178/120 unable to discharge patient due to high BPs Review of Systems Review of Systems: All systems reviewed & are unremarkable except as noted in HPI and below Integumentary/Breasts: Comments: Leg redness and swelling is better Exam Const: General: no acute distress, alert and awake Nutritional Appearance: obese morbidly obese Orientation/consciousness: patient oriented x3 HENMT: Head: normal to inspection General nose exam: Normal external nose present Face and sinus: normal facial exam Mouth: Yes Normal oral and palatal mucosa present and Yes oropharynx normal Eyes: Pupils: Equal, round and reactive pupils present EOM: EOMs intact bilaterally Neck: Neck: supple and no JVD Thyroid: thyroid normal Lymphatic: lymphadenopathy not noted Resp: Effort & Inspection: normal respiratory effort Auscultation: clear to auscultation bilaterally Cardio: Rate: regular rate Rhythm: regular rhythm Heart sounds: no murmurs GI: Inspection: normal to inspection Auscultation: normal bowel sounds Skin: General skin exam: other (Left leg much less swollen and red ) Neuro: General: patient oriented x3 Cranial nerves: Yes CN's II-XII intact bilaterally and Yes Equal, round and reactive pupils present Speech: normal speech Motor exam (neuro): 5/5 motor strength present throughout Sensory Exam: normal sensation Extrem: General: normal to inspection and edema left Psych: Mental Status: mental status grossly normal Affect: normal affect Objective Data Vital Signs Vital Signs: Vital Signs - 24 hr 08/31/19 14:00 08/31/19 18:39 08/08
[2019-09-01 12:36] LABS: Glucose Point of Care 120 (65-105)
[2019-09-01 12:36] LABS: Glucose Point of Care 109 (65-105)
[2019-09-01] MEDS: METOPROLOL TARTRATE INJ 5 MG/5 ML VIAL IV PUSH (12:48)
[2019-09-01] MEDS: lisinopriL 20 MG TABLET PO (15:06)
[2019-09-01] MEDS: LABETALOL HCL INJ 100 MG/20 ML VIAL 10 MG IV PUSH (18:12)
[2019-09-01 18:24] LABS: Glucose Point of Care 90 (65-105)
--- NOTE | 2019-09-01 19:49 | PC.NURSE ---
Pt BP elevated prior to shift. Asked mini shifter nurse about it; he stated he gave her PRN hydralazine which was ineffective and gave her a headache. Pt meds were increased for 0900 for BP. BP at 1200 was 182/122, manually. I called Dr. Mercer at 1215 who said to stop hydralazine, switch to PRN metoprolol IV 5 mg, and she would resume her lisinopril 60mg tomorrow. Metoprolol given at 1248. BP manually at 1400 178/120. LM for Dr. Mercer at 1405, Dr. Mercer called back around 1430. Ordered additional 20 mg lisinopril PO to make lisinopril 60 mg 08/31. Lisinopril given at 1445. BP at 178/122 [address] at [address] Mercer at 1610 and left message. At 1645, I saw her on the floor and she said she would be with me when she was done with a COVID. At 1700, she said to call Hussein for orders. I called Hussein at 1720; he called back at 1750 and said to give 10mg labetalol IVP now, then call back in one hour with BP. At 1745 BP was 178/120. Gave labetalol IVP 10 mg at 1812. Let Dot know to pass on to nightsmoft aide to get a BP at 1915. Told Nishi that she would need to call Hussein with BP to receive new orders. Pt remains asymptomatic with elevated BPs and glucose of 90.
--- NOTE | 2019-09-01 20:35 | PC.NURSE ---
notified of elevated b/p (218/140). Instructed to give scheduled dose of PO Lobetalol and recheck b/p in 2hrs and call md with b/p.
[2019-09-01] MEDS: CEPHALEXIN 500 MG CAPSULE PO (20:36)
[2019-09-01] MEDS: LABETALOL HCL 100 MG TABLET 200 MG PO (20:37)
--- NOTE | 2019-09-01 23:23 | PC.NURSE ---
notified of elevated b/p of 204/128. Orders received and entered.
[2019-09-02] VITALS (9 sets, daily range): BP systolic 130–164; BP diastolic 87–118; PULSE 80–90; RESP 16–18; TEMP 36.2–36.9; O2SAT 94–100
[2019-09-02 04:57] LABS: Glucose Point of Care 135 (65-105)
[2019-09-02] MEDS: LEVOTHYROXINE SODIUM 50 MCG TABLET PO (08:48)
[2019-09-02 08:49] LABS: Hematocrit 46.2 % (37.0-47.0); Hemoglobin 15.1 g/dL (12.0-15.0); Mean Corpuscular HGB Conc 32.7 g/dl (32-36); Mean Corpuscular Volume 94.9 fl (80-100); Mean Platelet Volume 11.4 fl (7.4-10.4); Platelet Count Result 142 k/mm3 (150-375); Red Blood Count 4.87 M/mm3 (4.2-5.4); Red Cell Distribution Width 13.3 % (11.5-14.5); White Blood Count 8.5 K/mm3 (4.5-10.0)
[2019-09-02 08:58] LABS: Albumin Level 3.9 g/dL (3.5-5.1); Blood Urea Nitrogen 24 mg/dL (7-17); Calcium 9.1 mg/dL (8.4-10.2); Carbon Dioxide 24 mmol/L (22-30); Chloride 106 mmol/L (98-107); Estimated CRCL calculation 43 ml/min; Estimated Glomerular Filt Rate 38; Glucose 106 mg/dL (65-105); Phosphorus 4.4 mg/dL (2.5-4.5); Potassium 3.6 mmol/L (3.4-5.0); Sodium 137 mmol/L (137-145)
[2019-09-02 08:59] LABS: Blood Urea Nitrogen 25 mg/dL (7-17); Calcium 9.2 mg/dL (8.4-10.2); Carbon Dioxide 25 mmol/L (22-30); Chloride 106 mmol/L (98-107); Estimated CRCL calculation 43 ml/min; Estimated Glomerular Filt Rate 38; Glucose 107 mg/dL (65-105); Potassium 3.6 mmol/L (3.4-5.0); Sodium 137 mmol/L (137-145)
[2019-09-02] MEDS: CEPHALEXIN 500 MG CAPSULE PO ×2 (09:00→20:08)
--- NOTE | 2019-09-02 09:05 | PM.PNNEP ---
Progress Note: A&P Assessment and Plan (1) Chronic kidney disease, stage 3: Code(s): N18.3 - Chronic kidney disease, stage 3 (moderate) Status: Acute Assessment and Plan: creatinine had been running ~ 1.3 - 1.6mg/dl in the last few years however, in the last 6 - 7 months, running closer to 1.7 - 1.8mg/dl suspicion falls on some degree of CKD progression etiology of CKD due to HTN, vascular disease with some contributions from DM (2) Cellulitis of left leg: Code(s): L03.116 - Cellulitis of left lower limb Status: Acute Assessment and Plan: clinical improvement noted with current therapy continues supportive care (3) Hypertension: Qualifiers: Hypertension type: unspecified Qualified Code(s): I10 - Essential (primary) hypertension Code(s): I10 - Essential (primary) hypertension Status: Chronic Assessment and Plan: extremely elevated and difficult to control switched metoprolol for labetalol and will titrate dosage (increased to 300mg bid but consider tid dosing as well) already on full dose CIERRA-I along with CCB (diltiazem) - both of which should help with her proteinuria will check renal duplex to r/o renal artery stenosis follow trend of hemodynamics (4) Diabetes mellitus: Qualifiers: Diabetes mellitus complication status: without complication Diabetes mellitus ad terminal makeup operator insulin use: without ad terminal makeup operator use Diabetes mellitus type: type 2 Qualified Code(s): E11.9 - Type 2 diabetes mellitus without complications Code(s): E11.9 - Type 2 diabetes mellitus without complications Status: Chronic Assessment and Plan: follow accuchecks on SSI Will continue to follow. Subjective Date/time seen: 09/02/19 09:05 BP seems to be slowly improving with titration of current BP medications; no apparent distress voiced at this time; no events to report overnight. Exam Narrative: Exam Narrative: General: WD/WN AA female in NAD Heart: normal S1 and S2; no rub Lungs: clear to auscultation Abdomen: soft, nontender, nondistended, positive bowel sounds Extremities: no cyanosis or clubbing; no edema Skin: warm and intact Objective Data Vital Signs Vital Signs: Vital Signs Temp Pulse Resp BP Pulse Ox 09/02/19 06:00 36.3 C L 86 18 158/106 H 96 09/02/19 02:00 36.2 C L 80 16 162/108 H 97 09/01/19 22:45 36.1 C L 88 18 204/128 H 97 09/01/19 22:00 18 09/01/19 19:20 36.6 C 91 16 218/140 H 98 09/01/19 18:12 88 09/01/19 17:45 178/120 H 09/01/19 14:00 36.6 C 87 16 178/120 H 97 09/01/19 12:48 80 09/01/19 12:12 36.8 C 88 18 182/122 H 100 Intake/Output Intake/Output: Intake & Output 08/30/19 08/31/19 09/01/19 09/02/19 23:59 23:59 23:59 23:59 Intake Total 1410 1600 1470 480 Output Total 1100 1250 1150 400 Balance 310 350 320 80 Meds/Results Medications: Active Medications Generic Name Dose Route Start Last Admin Trade Name Freq PRN Reason Stop Dose Admin Hydrocodone Bitart/Acetaminophen 1 tab 08/28/19 22:01 09/01/19 06:45 [place] 5-325 Mg PO 1 tab Q4H PRN Administration Moderate Pain (4-6) Allopurinol 300 mg 08/29/19 09:00 09/01/19 08:50 Zyloprim PO 300 mg DAILY LUNA Administration Cephalexin HCl 500 mg 09/01/19 21:00 09/01/19 20:36 Keflex Capsule PO 500 mg Q12HR LUNA Administration Clonidine HCl 1 patch 08/31/19 16:15 08/31/19 16:18 [id number] TRANSDERM 1 patch WEEKLY LUNA Administration Dextrose 12.5 gm 08/28/19 22:02 Dextrose 50% Syringe IV PUSH PRN PRN Hypoglycemia Protocol Diltiazem HCl 360 mg 08/29/19 09:00 09/01/19 08:49 Cardizem Cd PO 360 mg DAILY LUNA Administration Enoxaparin Sodium 40 mg 08/29/19 09:00 09/01/19 09:00 Lovenox SUB-Q 40 mg DAILY LUNA Administration Glucagon 1 mg 08/28/19 22:02 Glucagon For Inj IM PRN PRN Hypogl
[2019-09-02] MEDS: ENOXAPARIN 40 MG/0.4 ML SYRINGE SUB-Q (10:00)
[2019-09-02] MEDS: lisinopriL 20 MG TABLET 60 MG PO (10:04)
[2019-09-02] MEDS: allopurinoL 300 MG TABLET PO (10:04)
[2019-09-02] MEDS: LEFLUNOMIDE 20 MG TABLET PO (10:05)
[2019-09-02] MEDS: LABETALOL HCL 100 MG TABLET 200 MG PO (10:06)
[2019-09-02 10:24] LABS: Glucose Point of Care 102 (65-105)
[2019-09-02 12:57] LABS: Glucose Point of Care 106 (65-105)
--- NOTE | 2019-09-02 16:01 | PM.IMPN ---
Progress Note: A&P Assessment and Plan (1) Swelling of lower extremity: Code(s): M79.89 - Other specified soft tissue disorders Status: Acute Assessment and Plan: r/o developing cellulitis vs. venous insufficiency. Pain control as needed overnight. Change to oral ABX 54 year old Diabetic female with known HTN, hypothyroidism and CKD who presented to the hospital with a complaint of left lower extremity swelling which started 08/27 while she was at work. Venous doppler negative for DVT, currently treated for leg cellulitis. Bp very high upon arrival. Nephrology recommends renal doppler which is negative of renal artery stenosis, patient is on full dose of Kimani inhibitor, diltiazem, clonidine, and labetolol her BP is trending down, patient cellulitis is improving, will discharge patient tomorrow. (2) Acute on chronic renal failure: Qualifiers: Acute renal failure type: unspecified Chronic kidney disease stage: stage 3 (moderate) Qualified Code(s): N17.9 - Acute kidney failure, unspecified; N18.3 - Chronic kidney disease, stage 3 (moderate) Code(s): N17.9 - Acute kidney failure, unspecified; N18.9 - Chronic kidney disease, unspecified Status: Acute Assessment and Plan: Monitor renal function and urine output. (3) Hypokalemia: Code(s): E87.6 - Hypokalemia Status: Resolved Assessment and Plan: (4) Diabetes mellitus: Qualifiers: Diabetes mellitus type: type 2 Diabetes mellitus mcc insulin use: without intermediate project manager use Diabetes mellitus complication status: without complication Qualified Code(s): E11.9 - Type 2 diabetes mellitus without complications Code(s): E11.9 - Type 2 diabetes mellitus without complications Status: Chronic Assessment and Plan: Accuchecks, sSI Coverage, hypoglycemic protocol. restart metformin on discharge (5) Arthritis: Code(s): M19.90 - Unspecified osteoarthritis, unspecified site Status: Chronic Assessment and Plan: Continue leflunomide. (6) Hypertension: Qualifiers: Hypertension type: unspecified Qualified Code(s): I10 - Essential (primary) hypertension Code(s): I10 - Essential (primary) hypertension Status: Chronic Assessment and Plan: Bp extremely high for 2 days lisinopril increased clonodine added pt also has iv hydralazine, diltazem and metoprolol for high BPs. Pt needs more Bp control and renal US Subjective Date/time seen: 09/02/19 16:01 Interval history: 54 year old Diabetic female with known HTN, hypothyroidism and CKD who presented to the hospital with a complaint of left lower extremity swelling which started 08/27 while she was at work. Venous doppler negative for DVT, currently treated for leg cellulitis. Bp very high upon arrival. Nephrology recommends renal doppler which is negative of renal artery stenosis, patient is on full dose of Kimani inhibitor, diltiazem, clonidine, and labetolol her BP is trending down, patient cellulitis is improving, will discharge patient tomorrow. Review of Systems Review of Systems: All systems reviewed & are unremarkable except as noted in HPI and below Exam Const: General: comfortable and no acute distress HENMT: General nose exam: Normal nares present Eyes: General: appearance normal, both eyes and all related structures Sclera: sclerae normal Neck: Neck: supple Resp: Effort & Inspection: normal respiratory effort Auscultation: clear to auscultation bilaterally Cardio: Rate: regular rate Rhythm: regular rhythm GI: Auscultation: normal bowel sounds Skin: Other: left lower extremity hyperemic Neuro: Speech: normal speech Sensory Exam: normal sensation Extrem: General: normal to inspection Psych: Affect: Anxious affect present Objective Data Vital Signs Vital Signs: Vital Signs - 24 hr 09/01/19 17:45 09/01/19 18:12 09/01/19 19:20
[2019-09-02 18:27] LABS: Glucose Point of Care 109 (65-105)
[2019-09-02] MEDS: LABETALOL HCL 100 MG TABLET 300 MG PO (20:09)
--- NOTE | 2019-09-02 20:36 | PC.NURSE ---
Alert and oriented to person, place and time. (yes/no questions asked and answered, also patient is able to write appropriately.) Explained purpose, benefits/risks of collazo catheter insertion. Patient refused collazo catheter at this time.
[2019-09-03 01:48] LABS: Glucose Point of Care 132 (65-105)
[2019-09-03 02:17] VITALS: BP 132/72; PULSE 77; RESP 18; TEMP 36.7; O2SAT 97
[2019-09-03] MEDS: LEVOTHYROXINE SODIUM 50 MCG TABLET PO (05:00)
[2019-09-03 05:59] LABS: Albumin Level 3.9 g/dL (3.5-5.1); Blood Urea Nitrogen 30 mg/dL (7-17); Calcium 9.2 mg/dL (8.4-10.2); Carbon Dioxide 27 mmol/L (22-30); Chloride 107 mmol/L (98-107); Estimated CRCL calculation 43 ml/min; Estimated Glomerular Filt Rate 38; Glucose 107 mg/dL (65-105); Phosphorus 4.6 mg/dL (2.5-4.5); Potassium 3.9 mmol/L (3.4-5.0); Sodium 138 mmol/L (137-145)
[2019-09-03 06:00] VITALS: BP 144/83; PULSE 80; RESP 18; TEMP 36.7; O2SAT 98
[2019-09-03] MEDS: lisinopriL 20 MG TABLET 60 MG PO (08:40)
[2019-09-03 08:41] VITALS: PULSE 84
[2019-09-03] MEDS: allopurinoL 300 MG TABLET PO (08:41)
[2019-09-03] MEDS: LABETALOL HCL 100 MG TABLET 300 MG PO (08:41)
[2019-09-03] MEDS: LEFLUNOMIDE 20 MG TABLET PO (08:41)
[2019-09-03] MEDS: ENOXAPARIN 40 MG/0.4 ML SYRINGE SUB-Q (08:47)
[2019-09-03 08:50] LABS: Glucose Point of Care 108 (65-105)
[2019-09-03 09:58] VITALS: BP 151/91; PULSE 85; RESP 16; TEMP 36.6; O2SAT 95
--- NOTE | 2019-09-03 11:49 | PM.PNNEP ---
Progress Note: A&P Assessment and Plan (1) Chronic kidney disease, stage 3: Code(s): N18.3 - Chronic kidney disease, stage 3 (moderate) Status: Acute Assessment and Plan: creatinine had been running ~ 1.3 - 1.6mg/dl in the last few years however, in the last 6 - 7 months, running closer to 1.7 - 1.8mg/dl suspicion falls on some degree of CKD progression etiology of CKD due to HTN, vascular disease with some contributions from DM (2) Cellulitis of left leg: Code(s): L03.116 - Cellulitis of left lower limb Status: Acute Assessment and Plan: clinical improvement noted with current therapy continues supportive care (3) Hypertension: Qualifiers: Hypertension type: unspecified Qualified Code(s): I10 - Essential (primary) hypertension Code(s): I10 - Essential (primary) hypertension Status: Chronic Assessment and Plan: doing better switched metoprolol for labetalol and will titrate dosage already on full dose CIERRA-I along with CCB (diltiazem) - both of which should help with her proteinuria will check renal duplex negative for MAYDA follow trend of hemodynamics (4) Diabetes mellitus: Qualifiers: Diabetes mellitus complication status: without complication Diabetes mellitus terminologist insulin use: without terminologist use Diabetes mellitus type: type 2 Qualified Code(s): E11.9 - Type 2 diabetes mellitus without complications Code(s): E11.9 - Type 2 diabetes mellitus without complications Status: Chronic Assessment and Plan: follow accuchecks on SSI Discussed case with Dr. Garcia -- not opposed to discharge from renal perspective. Subjective Date/time seen: 09/03/19 11:49 BP has improved significantly in the last 24 - 48 hours; eating lunch and appears in no acute distress; no events or issues to report at this time; denies any headaches. Exam Narrative: Exam Narrative: General: WD/WN AA female in NAD Heart: normal S1 and S2; no rub Lungs: clear to auscultation Abdomen: soft, nontender, nondistended, positive bowel sounds Extremities: no cyanosis or clubbing; no edema Skin: no rash or nodules Objective Data Vital Signs Vital Signs: Vital Signs Temp Pulse Resp BP Pulse Ox 09/03/19 09:58 36.6 C 85 16 151/91 H 95 09/03/19 08:41 84 09/03/19 06:00 36.7 C 80 18 144/83 H 98 09/03/19 02:17 36.7 C 77 18 132/72 97 09/02/19 22:00 36.4 C 85 18 130/87 94 09/02/19 20:09 86 09/02/19 20:00 86 18 100 09/02/19 18:00 36.9 C 88 18 148/104 H 100 09/02/19 14:00 36.5 C 90 16 154/108 H 97 Intake/Output Intake/Output: Intake & Output 08/31/19 09/01/19 09/02/19 09/03/19 23:59 23:59 23:59 23:59 Intake Total 1600 1470 1260 940 Output Total 1250 1150 825 150 Balance 350 320 435 790 Meds/Results Medications: Active Medications Generic Name Dose Route Start Last Admin Trade Name Freq PRN Reason Stop Dose Admin Hydrocodone Bitart/Acetaminophen 1 tab 08/28/19 22:01 09/01/19 06:45 [place] 5-325 Mg PO 1 tab Q4H PRN Administration Moderate Pain (4-6) Allopurinol 300 mg 08/29/19 09:00 09/03/19 08:41 Zyloprim PO 300 mg DAILY LUNA Administration Cephalexin HCl 500 mg 09/01/19 21:00 09/02/19 20:08 Keflex Capsule PO 500 mg Q12HR LUNA Administration Clonidine HCl 1 patch 08/31/19 16:15 08/31/19 16:18 [id number] TRANSDERM 1 patch WEEKLY LUNA Administration Dextrose 12.5 gm 08/28/19 22:02 Dextrose 50% Syringe IV PUSH PRN PRN Hypoglycemia Protocol Diltiazem HCl 360 mg 08/29/19 09:00 09/03/19 08:40 Cardizem Cd PO 360 mg DAILY LUNA Administration Enoxaparin Sodium 40 mg 08/29/19 09:00 09/03/19 08:47 Lovenox SUB-Q 40 mg DAILY LUNA Administration Glucagon 1 mg 08/28/19 22:02 Glucagon For Inj IM PRN PRN Hypoglycemia Protocol Glucose 15 gm 08/28/19 22:
--- NOTE | 2019-09-03 11:50 | PM.DS ---
DS: Admitting Diagnosis Admitting Diagnosis Admitting Diagnosis: Other specified soft tissue disorders DS: Discharge Diagnosis Discharge Diagnosis (1) Swelling of lower extremity: Code(s): M79.89 - Other specified soft tissue disorders Status: Acute Assessment and Plan: r/o developing cellulitis vs. venous insufficiency. Pain control as needed overnight. Change to oral ABX 54 year old Diabetic female with known HTN, hypothyroidism and CKD who presented to the hospital with a complaint of left lower extremity swelling which started 08/27 while she was at work. Venous doppler negative for DVT, currently treated for leg cellulitis. Bp very high upon arrival. Nephrology recommends renal doppler which is negative of renal artery stenosis, patient is on full dose of Kimani inhibitor, diltiazem, clonidine, and labetolol her BP is trending down, patient cellulitis is improving, will discharge patient tomorrow. (2) Acute on chronic renal failure: Qualifiers: Acute renal failure type: unspecified Chronic kidney disease stage: stage 3 (moderate) Qualified Code(s): N17.9 - Acute kidney failure, unspecified; N18.3 - Chronic kidney disease, stage 3 (moderate) Code(s): N17.9 - Acute kidney failure, unspecified; N18.9 - Chronic kidney disease, unspecified Status: Acute Assessment and Plan: Monitor renal function and urine output. (3) Hypokalemia: Code(s): E87.6 - Hypokalemia Status: Resolved Assessment and Plan: (4) Diabetes mellitus: Qualifiers: Diabetes mellitus type: type 2 Diabetes mellitus intermediate project manager insulin use: without intermediate project manager use Diabetes mellitus complication status: without complication Qualified Code(s): E11.9 - Type 2 diabetes mellitus without complications Code(s): E11.9 - Type 2 diabetes mellitus without complications Status: Chronic Assessment and Plan: Accuchecks, sSI Coverage, hypoglycemic protocol. restart metformin on discharge (5) Arthritis: Code(s): M19.90 - Unspecified osteoarthritis, unspecified site Status: Chronic Assessment and Plan: Continue leflunomide. (6) Hypertension: Qualifiers: Hypertension type: unspecified Qualified Code(s): I10 - Essential (primary) hypertension Code(s): I10 - Essential (primary) hypertension Status: Chronic Assessment and Plan: Bp extremely high for 2 days lisinopril increased clonodine added pt also has iv hydralazine, diltazem and metoprolol for high BPs. Pt needs more Bp control and renal US DS: Summary Hospital Course Reason for hospitalization: This is a 54 year old Diabetic female with known HTN, hypothyroidism and CKD who presented to the hospital with a complaint of left lower extremity swelling which started yesterdaywhile she was at work. She initially noted that she had discomfort on the lateral side of her LLE. The patient called her PCP's office and was told that her PCP wouldn't be seeing any patients until October. She was advised to come to the ER for evaluation. She reports that last night she put a heating pad on her leg. Today she noticed she has redness involving the anterior aspect of her lower leg. She denies any recent LLE trauma. She also denies any fevers, chills, chest pain, shortness of breath, nausea, vomiting, diarrhea, dysuria, Routine labs were obtained in the ER tonight which were virtually unremarkable. Venous doppler U/S was negative for a DVT. The patient was started on IV antibiotics for presumed cellulitis and we were asked to admit the patient to the hospital for further care. Hospital Course: r/o developing cellulitis vs. venous insufficiency. Pain control as needed overnight. Change to oral ABX 54 year old Diabetic female with known HTN, hypothyroidism and CKD who presented to the hospital with a complaint of left lower extremity swelling which sta
[2019-09-03 12:43] LABS: Glucose Point of Care 102 (65-105)
== END 2019-09-03 14:35 | disposition home or self-care (01) | DRG 603 ==
LOC: ANHED 19:47 → ANH3MEDSUR 19:55
PROVIDERS: Emergency Medicine Emergency Medical Services; Family Medicine; Admitting Provider Family Medicine; Emergency Provider General Practice; PCP Family Medicine; Visit Provider Family Medicine
DX: L03.116 Cellulitis of left lower limb (principal); N17.9 Acute kidney failure, unspecified; E11.22 Type 2 diabetes mellitus with diabetic chronic kidney disease; I12.9 Hypertensive chronic kidney disease with stage 1 through stage 4 chronic kidney disease, or unspecified chronic kidney disease; N18.3 Chronic kidney disease, stage 3 (moderate); M79.89 Other specified soft tissue disorders; E87.6 Hypokalemia; E03.9 Hypothyroidism, unspecified; M19.90 Unspecified osteoarthritis, unspecified site; Z79.84 Long term (current) use of oral hypoglycemic drugs; Z79.899 Other long term (current) drug therapy; Z87.891 Personal history of nicotine dependence
CPT/HCPCS: 36415; 80048; 80069; 85025; 85027; 85055; 85610; 85730; 93971; 93976; 96361; 96365; 96366; 96372; 96375; 96376; 99285; A9270; G0378; J0360; J0690; J1650; J2405; J7030

== ENCOUNTER → 2020-09-23 11:58 | Outpatient (CLI) | payer BC, SELFPAY ==
--- NOTE | ~2020-09-23 | DEXA_ITS ---
Bone Density Report Name: Madhuri Benz Age: 55 Sex: Female Ethnicity: Black Date of : 1965 Indication: postmenopausal; screening for osteoporosis; rheumatoid arthritis; Referring Provider: Timothy Sadler Study: Bone densitometry was performed. Exam Date: September 23, 2020 Accession number: [id number] Bone Density: Region BMD T-score Z-score Classification AP Spine (L3, L4) 1.103 0.0 0.4 Normal Femoral Neck (Left) 0.863 0.1 0.2 Normal Total Hip (Left) 1.141 1.6 1.3 Normal Femoral Neck (Right) 0.867 0.2 0.3 Normal Total Hip (Right) 1.118 1.4 1.2 Normal Total Hip Mean 1.130 1.5 1.3 Normal World Health Organization criteria for BMD impression classify patients as: Normal (T-score at or above -1.0), Osteopenia (T-score between -1.0 and -2.5), or Osteoporosis (T-score at or below -2.5). 10-year Fracture Risk: FRAX not reported because: All T-scores for Spine Total, Hip Total, Femoral Neck at or above -1.0 Previous Exams: Region Exam Age BMD T-score BMD Change BMD Change Date g/cm2 vs Baseline vs Previous AP Spine(L3, L4) 09/23/2020 55 1.103 0.0 -0.069* -0.069* 07/14/2014 49 1.172 0.6 Total Hip(Left) 09/23/2020 55 1.141 1.6 -0.085* -0.085* 07/14/2014 49 1.226 2.3 Total Hip(Right) 09/23/2020 55 1.118 1.4 -0.115* -0.115* 07/14/2014 49 1.233 2.4 *Denotes significance at 95% confidence level, LSC for AP Spine = 0.022 g/cm2, LSC for Total Hip = 0.027 g/cm2 Clinical Information Provided by Patient: Has rheumatoid arthritis Has used the following medications: Vitamin D Patient maximum height was 68 Menopause Age: 49 No regular weight bearing exercise Does not regularly consume dairy products Drinks caffeinated beverages Onset of menses at age 10 Number of children 1 Impression: The patient has normal bone mass. The BMD for the AP Spine(L3, L4) decreased, changing by -0.069 since the last DXA exam. The BMD for the Total Hip(Left) decreased, changing by -0.085 since the last DXA exam. The BMD for the Total Hip(Right) decreased, changing by -0.115 since the last DXA exam. Discussion: BONE DENSITY IS ABOVE THE MINIMUM DESIRABLE LEVEL AT ALL SKELETAL SITES TESTED. This patient?s bone mineral density is above the minimum desirable level (T-score -1.0 or better) at all sites measured. The patient should follow a healthful lifestyle (good nutrition with adequate calcium
--- NOTE | ~2020-09-23 | MM_ITS ---
EXAMINATION: MM screening melly BI w lyssa HISTORY: Screening mammogram TECHNIQUE: Craniocaudal and mediolateral oblique 3-D tomosynthesis images were obtained and synthetic 2-D images were generated. CAD analysis was submitted and interpreted. COMPARISON: 07/14/2014 BREAST PARENCHYMAL COMPOSITION: The breasts are almost entirely fatty. FINDINGS: Changes of reduction last are noted with mild distortion breasts coarse calcification of th e right breast. There is no evidence of suspicious mass, calcification, or architectural distortion t o suggest malignancy in either breast. There has been no suspicious interval change. IMPRESSION: 1. No mammographic evidence of malignancy. 2. Recommend routine screening mammography in one year. BI-RADS Category 2: Benign finding(s). Reviewed, dictated and finalized at location A.
== END ==
PROVIDERS: PCP Physician Assistant; Visit Provider Physician Assistant
DX: Z12.31 Encounter for screening mammogram for malignant neoplasm of breast (principal); Z78.0 Asymptomatic menopausal state
CPT/HCPCS: 77063; 77067; 77080

== ENCOUNTER 2021-03-08 16:54 | Emergency (ER) | payer BC, SELFPAY ==
[2021-03-08 17:00] VITALS: BP 188/104; PULSE 79; RESP 20; TEMP 36.6; O2SAT 100
--- NOTE | 2021-03-08 17:00 | ED.EYEPROB ---
HPI - Eye Problem General Chief complaint: Eye Problems Stated complaint: EYE PAIN/WATERING Time Seen by Provider: 03/08/21 17:04 Source: patient and RN notes reviewed Mode of arrival: ambulatory Limitations: no limitations History of Present Illness HPI Narrative: 56-year-old female presents to the [facility] with left upper eyelid swelling and red eye since Sunday, 4 days ago. Has been using Visine with little relief. States she is light sensitive. Denies change in vision. Denies loss of vision. Discussed the pain is all in the left upper eyelid. Wears glasses, denies wearing contacts. Denies trauma to the eye. Patient has a history of high blood pressure, states that she did take her medication daily MD chief complaint: eye redness Related Data Home Medications Medication Instructions Recorded Confirmed allopurinol 300 mg tablet 300 mg PO DAILY 05/19/19 02/24/21 leflunomide 20 mg tablet 20 mg PO DAILY 05/19/19 02/24/21 diltiazem HCl 360 mg PO DAILY 08/28/19 02/24/21 cholecalciferol (vitamin D3) 50 50 mcg PO DAILY 07/21/20 02/24/21 mcg (2,000 unit) capsule Allergies Allergy/AdvReac Type Severity Reaction Status Date / Time No Known Allergies Allergy Verified 02/24/21 09:50 Review of Systems Review of Systems: All systems reviewed & are unremarkable except as noted in HPI and below Constitutional: Constitutional: Reports no additional constitutional complaints, Denies chills and Denies fever(s) Eyes: Eyes: Reports as per HPI, Denies change in vision, Denies floaters, Denies loss of peripheral vision, Denies loss of vision, Denies other visual disturbances, Reports requires corrective lenses (Wears glasses), Denies seeing flashes, Reports photophobia, Denies spots in vision and Denies tunnel vision ENT: Reports system reviewed and no additional complaints, except as documented Cardiovascular: Cardiovascular: Reports no additional cardiovascular complaints Respiratory: Respiratory: Reports no additional respiratory complaints Musculoskeletal: Musculoskeletal: Reports no additional musculoskeletal complaints Integumentary/Breasts: Skin/Breast: Reports system reviewed and no additional complaints, except as docu Neurologic: Reports system reviewed and no additional complaints, except as documented Psychiatric: Psychiatric: Reports no additional psychiatric complaints Allergic/Immunologic: Allergic/Immunologic: Reports no additional allergic/immunologic complaints PMFSH Past Medical History Medical History Chronic kidney disease Diabetes mellitus Hypertension Family History Family History Mother Diabetes mellitus Other Hypertension Social History Social History Smoking packs per day: 0.5 Smoking cigarettes per day: 10.0 Years smoked: 6 Smoking pack-years: 3.00 Smoking status: Never smoker Tobacco type: cigarettes Second hand tobacco smoke exposure: No Smoking end date: 04/09/92 Alcohol intake: never Substance use: never Substance use type: does not use Gender identity (if verbalized by the patient): Female Spiritual care concerns: No Comments At the time of my signature, I reviewed and agree with the nursing past medical, surgical, social, and family history. There is no relevant family history pertinent to the patient complaint. Exam Const: General: healthy appearing, no acute distress and alert Nutritional Appearance: well nourished and obese Orientation/consciousness: patient oriented x3 Limitations: no limitations HENMT: Head: normal to inspection Eyes: General: appearance normal, both eyes and all related structures Visual Downs: normal visual downs by confrontation Alignment and Position: alignment normal Eyelids: eyelid abnormality left upper eyelid lid margins crusty/scaly and swelling; without eryt
== END 2021-03-08 17:29 | disposition home or self-care (01) ==
PROVIDERS: Emergency Provider Nurse Practitioner; PCP Physician Assistant
DX: H00.016 Hordeolum externum left eye, unspecified eyelid (principal); H10.9 Unspecified conjunctivitis; I12.9 Hypertensive chronic kidney disease with stage 1 through stage 4 chronic kidney disease, or unspecified chronic kidney disease; E11.22 Type 2 diabetes mellitus with diabetic chronic kidney disease; N18.9 Chronic kidney disease, unspecified; F17.210 Nicotine dependence, cigarettes, uncomplicated
CPT/HCPCS: 99213; G0463

== ENCOUNTER → 2021-12-01 14:48 | Outpatient (CLI) | payer BC, SELFPAY ==
--- NOTE | ~2021-12-01 | MM_ITS ---
EXAMINATION: MM screening melly BI w lyssa HISTORY: Screening TECHNIQUE: Craniocaudal and mediolateral oblique 3-D tomosynthesis images were obtained and synthetic 2-D images were generated. CAD analysis was submitted and interpreted. COMPARISON: Comparison to multiple prior studies sequentially, with oldest reviewed study dated 10/2014. BREAST PARENCHYMAL COMPOSITION: Breast composition is almost entirely fatty FINDINGS: There are distortion changes of both breasts consistent with previous breast reduction surg danna. There is no evidence of suspicious mass, calcification, or architectural distortion to suggest m alignancy in either breast. There has been no suspicious interval change. IMPRESSION: 1. No mammographic evidence of malignancy. 2. Recommend routine screening mammography in one year. BI-RADS Category 2: Benign finding(s). Reviewed, dictated and finalized at location A.
== END ==
PROVIDERS: PCP Physician Assistant; Visit Provider Physician Assistant
DX: Z12.31 Encounter for screening mammogram for malignant neoplasm of breast (principal)
CPT/HCPCS: 77063; 77067

== ENCOUNTER 2023-07-11 13:02 | Outpatient (CLI) | payer BC, SELFPAY ==
--- NOTE | ~2023-07-11 | XR_ITS ---
XR cervical spine 4-5V DATE: 07/11/2023 13:22 INDICATION: Neck pain, right arm pain and numbness for one month TECHNIQUE: AP, open-mouth, lateral and swimmer views COMPARISON: None FINDINGS: Normal alignment of the cervical spine. C1 and C2 are normally aligned and the odontoid pro cess is intact. No fracture or dislocation or locked facet or prevertebral soft tissue swelling. Ther e is mild loss of interspace height at C2-3 and moderate loss of interspace height at C5-6 and C6-7. IMPRESSION: Mild cervical spondylosis. No other significant abnormality is detected Reviewed, dictated and finalized at location B. IMPRESSION: Mild cervical spondylosis. No other significant abnormality is dete cted
--- NOTE | ~2023-07-11 | XR_ITS ---
XR shoulder RT min 2V DATE: 07/11/2023 13:22 INDICATION: Right shoulder pain, right arm numbness for one month. No injury. TECHNIQUE: 4 views COMPARISON: None FINDINGS: No fracture or dislocation, periosteal reaction or bone destruction or abnormal soft tissue calcification. Osteopenia. IMPRESSION: Osteopenia Reviewed, dictated and finalized at location B. IMPRESSION: Osteopenia
== END 2023-07-11 13:03 ==
PROVIDERS: PCP Family Medicine; Visit Provider Family Medicine
DX: M25.511 Pain in right shoulder (principal); M85.811 Other specified disorders of bone density and structure, right shoulder; M47.892 Other spondylosis, cervical region
CPT/HCPCS: 72050; 73030

== ENCOUNTER 2023-11-07 15:02 | Outpatient (CLI) | payer BC, SELFPAY ==
--- NOTE | ~2023-11-07 | XR_ITS ---
3 VIEWS LUMBAR SPINE Ordering provider: Marlyn Smith PA-C History: . M54.50 - Low back pain, unspecified . Comparison: None. FINDINGS: VERTEBRAL BODIES: No visible fracture or subluxation. DISK SPACES: Narrowing of the disc L2-L3 and L5-S1. SOFT TISSUES: Normal. IMPRESSION: No acute osseous abnormality lumbar spine. Reviewed, dictated and finalized at location A.
== END 2023-11-07 15:03 ==
PROVIDERS: PCP Student in an Organized Health Care Education/Training Program; Visit Provider Student in an Organized Health Care Education/Training Program
DX: M54.50 Low back pain, unspecified (principal)
CPT/HCPCS: 72100

== ENCOUNTER 2024-07-23 21:06 | Emergency (ER) | payer OTHER, SELFPAY ==
--- NOTE | ~2024-07-23 | XR_ITS ---
XR shoulder LT min 2V Ordering provider: Rebecca Romano PA-C History: . pain NO FALL NO TRAUMA . Comparison: None. FINDINGS: BONES: No acute fracture or dislocation. JOINT SPACES: The acromioclavicular joint is normal. The glenohumeral joint is normal. SOFT TISSUES: Normal. IMPRESSION: No acute osseous abnormality left shoulder. Reviewed, dictated and finalized at location A.
--- NOTE | ~2024-07-23 | XR_ITS ---
XR shoulder RT min 2V Ordering provider: Rebecca Romano PA-C History: . pain NO FALL NO TRAUMA . Comparison: None. FINDINGS: BONES: No acute fracture or dislocation. Degenerative changes in the area of the greater tuberosity. JOINT SPACES: The acromioclavicular joint is normal. The glenohumeral joint is normal. SOFT TISSUES: Normal. IMPRESSION: No acute osseous abnormality right shoulder. Degenerative changes in the area of the greater tuberosity which may indicate tendinosis of the supra spinatous. MRI is better for evaluation Reviewed, dictated and finalized at location A. IMPRESSION: No acute osseous abnormality right shoulder. Degenerative changes in the area of the greater tuberosity which may indicate t endinosis of the supraspinatous. MRI is better for evaluation
--- OUTSIDE RECORDS SUMMARY | 2024-07-23 21:08 | XMS_ITS | Clinical Summary ---
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 Active leflunomide (ARAVA) 20 MG tablet Take 20 mg by mouth 9 Active allopurinol (ZYLOPRIM) 300 MG tablet TAKE 1 TABLET BY MOUTH ONCE DAILY FOR GOUT 2 Active atenolol (TENORMIN) 50 MG tablet 50 mg 3 Active folic acid (FOLVITE) 1 MG tablet TAKE 1 TABLET BY MOUTH EVERY DAY 2 Active Cholecalciferol (VITAMIN D3) 400 units capsule Active cloNIDine 0.1 MG/24HR patch weekly MARIANELA 1 PA EXT TO THE SKIN WEEKLY 0 Active leflunomide (ARAVA) 10 MG tablet Take 10 mg by mouth 1 (one) time each day 1 Active pravastatin (PRAVACHOL) 40 MG tablet Take 40 mg by mouth 1 (one) time each day 1 Active ciprofloxacin (CILOXAN) 0.3 % ophthalmic solution 1 Active trimethoprim-po lymyxin b (POLYTRIM) ophthalmic solution INSTILL 1 DROP IN LEFT EYE EVERY 3 HOURS WHILE AWAKE FOR 7 DAYS. 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 Likely hemoconcentration. May have reactive erythrocytosis from underlying PAIGE with hypoxia. Plan: - Hydrate - TTrend CBC, if HgB remains high, will investigate other causes -Obtain medical records Hyperglycemia 05/18/2015 Overview (01/29/2019): Last Assessment & Plan: Likely in the setting of high dose corticosteroid use. No previous history of DM. (+) RF of DM: obesity, steroid use. A1C elevated 6.8. Plan: - Low dose SSI -Diabetes education -Oral antihypergycemics once outpatient Hypertensive disorder 08/23/2013 Overview (01/29/2019): Overview: HTN (hypertension) Last Assessment & Plan: Normotensive. - Hold triamterene/HCTZ and lisinopril in setting of HUGO - Continue amlodipine Gout 08/23/2013 Overview (01/29/2019): Overview: Gout Hypothyroidism 08/23/2013 Overview (01/29/2019): Overview: Hypothyroidism Last Assessment & Plan: TSH normal. -Continue home dose of 50 mcg of levothyroxine Pain in joint 08/23/2013 Overview (01/29/2019): Overview: Joint pain Rheumatoid arthritis 01/07/2013 Overview (01/29/2019): Overview: Rheumatoid arthritis Last Assessment & Plan: Bilateral symmetric small joint pain with some swelling, significant morning stiffness and limitation of activities correlate with significant rheumatoid flare. Joint swelling present on the clinical exam, correlates with the active RA. However, lab markers for active disease, ESR and CRP were normal likely due to PO steroids. The other differentials to be considered for swollen joints in suspicion of sepsis are viral or bacterial infections. Plan: - Continue steroids - will start 40 mg today and resume leflunomide. - Follow up with Rheumatology as outaptient - Driver prn for pain - PT/OT - Obtain medical records from Dr.Kimberley Olivares's office Immunizations Immunization Administration Dates Next Due Influenza TIV (IM) 02/14/2016 Influenza, Injectable, Quadrivalent 01/07/2019 Influenza, Injectable, Quadrivalent, Preservativ e Free 05/19/2015 Influenza, Quadrivalent 05/19/2015 Sars-cov-2, Unspecified 08/03/2020 Family History Medical History Relation Comments Diabetes mellitus Mother Hypertensive disorder Mother Kidney disease Mother Kidney stone Neg Hx Relation Status Comments Mother Social History Tobacco Use Types Packs/Day Years Used Date Smoking Tobacco: Never Smokeless Tobacco: Never Alcohol Use Standard Drinks/Week Comments No 0 (1 standard drink = 0.6 oz pur e alcohol) Comments Unknown Sex and Gender Information Value Date Recorded Sex Assigned at Not on file Legal Sex Female 9:20 AM [facility] Gender Identity Not on file Sexual Orientation Not on file Last Filed Vital Signs Vital Sign Reading Time Taken Comments Blood Pressure 142/80 12/22/2021 10:41 AM CDT Pulse - - Temperature 35.9 C (96.6 F) 12/22/2021 10:41 AM CDT Respiratory Rate 18 12/22/2021 10:41 AM CDT Oxygen Saturation - - Inhaled Oxygen Concentration - - Weight 113 kg (248 lb 4.8 oz) 12/22/2021 10:41 A M CDT Height 170.2 cm (5' 7 ) 12/22/2021 10:41 AM CDT Body Mass Index 38.89 12/22/2021 10:41 AM CDT Plan of Treatment Health Maintenance Due Date Last Done Comments Influenza Vaccine (Season Ended) 2024 02/14/20 16, 05/19/2015 Insurance [employer] Care Teams 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
--- OUTSIDE RECORDS SUMMARY | 2024-07-23 21:08 | XMS_ITS | Clinical Summary ---
Author Organization [address] Address [facility] [place] [address] Care Team Providers Care Apartment Leasing Specialist Name Role Phone Marquise Oneal MD Primary Care Provider [phone] Allergies No known active allergies Medications predniSONE (DELTASONE) 5 mg tablet take 1 Tablet by oral route every day 45 2 6 Active Additional Information Patient not taking.Reported on 11/16/2022 folic acid (FOLVITE) 1 mg tablet TAKE 1 TABLET BY MOUTH EVERY DAY 30 3 3 Active Additional Information Patient not taking.Reported on 11/16/2022 predniSONE (DELTASONE) 5 mg tablet take 3 pills a day for 5 days then 2 pills a day for 10 days and then 1 pill a day until seen again 60 0 6 Active Additional Information Patient not taking.Reported on 11/16/2022 leflunomide (ARAVA) 10 mg tablet TAKE 1 TABLET BY MOUTH EVERY DAY 30 2 6 Active Additional Information Patient not taking.Reported on 11/16/2022 allopurinol (ZYLOPRIM) 300 mg tablet take 1 tablet (300MG) by oral route every day 0 3 Active Additional Information Patient not taking.Reported on 11/16/2022 amLODIPine (NORVASC) 5 mg tablet take 1 tablet (5MG) by oral route every day 0 3 Active lisinopril (PRINIVIL,ZESTR IL) 40 mg tablet take 1 tablet (40MG) by oral route every day 0 3 Active triamterene-hyd roCHLOROthiazid e (MAXZIDE,DYAZID E) 37.5-25 mg per capsule take 1 capsule by oral route every day as needed for swelling 0 3 Active Additional Information Patient not taking.Reported on 11/16/2022 atenolol (TENORMIN) 50 mg tablet take 2 in the am and 1 in pm 0 0 3 Active levothyroxine (SYNTHROID, LEVOTHROID) 50 mcg tablet take 1 tablet (50MCG) by oral route every day 30 2 2 Active allopurinol (ZYLOPRIM) 300 mg tablet take 1 tablet (300MG) by oral route every day 30 3 2 Active Additional Information Patient not taking.Reported on 11/16/2022 folic acid (FOLVITE) 1 mg tablet take 1 tablet (1MG) by oral route every day 30 1 2 Active Additional Information Patient not taking.Reported on 11/16/2022 methotrexate 2.5 mg tablet 5 qweel 16 0 2 Active Additional Information Patient not taking.Reported on 11/16/2022 cholecalciferol (VITAMIN D-3) 2000 unit tablet Take 1 tablet (2,000 Units total) by mouth daily Active diltiazem (TIAZAC) 360 mg 24 hr capsule 1 Active labetaloL (NORMODYNE,WILLOUGHBY DATE) 300 mg tablet 2 Active pravastatin (PRAVACHOL) 40 mg tablet Take 1 tablet (40 mg total) by mouth daily 1 Active traMADoL (ULTRAM) 50 mg tablet Take 1 tablet (50 mg total) by mouth every 6 (six) hours as needed 3 Active cloNIDine (CATAPRES-TTS) 0.1 mg/24 hr MARIANELA 1 PA EXT TO THE SKIN WEEKLY 0 Active etanercept (EnbreL) 50 mg/mL (1 mL) injection Inject under the skin 6 Active metFORMIN (GLUCOPHAGE) 500 mg tablet Take by mouth 6 Active allopurinoL (ZYLOPRIM) 100 mg tablet TAKE 1 TABLET BY MOUTH EVERY DAY FOR GOUT 3 Active cyclobenzaprine (FLEXERIL) 5 mg tabletIndicatio ns:Right arm pain Take 1 tablet (5 mg total) by mouth 3 (three) times a day as needed for muscle spasms for up to 5 days 15 tablet 3 Active Active Problems Problem Noted Date Diagnosed Date 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 Likely due to dehydration in the setting of decrease PO intake with diuretic use. Plan: - S/P 1 L fluid bolus, maintenance fluids at 125 cc/hr - Hold triamterene/HCTZ and lisinopril - Check BMP daily and monitor urine output. Erythrocytosis 05/18/2015 Overview (11/16/2022): Last Assessment & Plan: Hb of 17.7 without baseline for comparison. Likely hemoconcentration. May have reactive erythrocytosis from underlying PAIGE with hypoxia. Plan: - Hydrate - TTrend CBC, if HgB remains high, will investigate other causes -Obtain medical records Hyperglycemia 05/18/2015 Overview (11/16/2022): Last Assessment & Plan: Likely in the setting of high dose corticosteroid use. No previous history of DM. (+) RF of DM: obesity, steroid use. A1C elevated 6.8. Plan: - Low dose SSI -Diabetes education -Oral antihypergycemics once outpatient Last Assessment & Plan: Likely in the setting of high dose corticosteroid use. No previous history of DM. (+) RF of DM: obesity, steroid use. A1C elevated 6.8. Plan: - Low dose SSI -Diabetes education -Oral antihypergycemics once outpatient Drug indicated 01/05/2015 Overview (07/14/2016): Encounter for long-term (current) use of high-risk medication Drug therapy finding 10/06/2014 Overview (07/14/2016): Therapeutic drug monitoring Hypothyroidism 08/23/2013 Overview (07/13/2016): Hypothyroidism Hypertension 08/23/2013 Overview (07/14/2016): HTN (hypertension) Gout 08/23/2013 Overview (07/14/2016): Gout Arthralgia 08/23/2013 Overview (07/14/2016): Joint pain Rheumatoid arthritis 01/07/2013 Overview (07/14/2016): Rheumatoid arthritis Adiposity 01/07/2013 Overview (07/14/2016): Obesity Family History Medical History Relation Name Comments Other Father 2 Alive and well; Diabetes Mother 2 Diabetes mellit ; Other Mother 2 Alive and well; has RA and DM Rheum arthritis Mother 2 Rheumatoid a rthritis; Relation Name Status Comments Father 1 Alive Father 2 Mother 1 Alive Mother 2 Social History Tobacco Use Types Packs/Day Years Used Date Smoking Tobacco: Former Cigarettes Q uit: 04/09/2007 Comments:Smoking History Pac ks/day: 0.5 Packs Alcohol Use Standard Drinks/Week Comments Yes 0 (1 standard drink = 0.6 oz pur e alcohol) Comments Unknown Sex and Gender Information Value Date Recorded Sex Assigned at Not on file 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 Gender Identity Not on file Sexual Orientation Not on file Obstetrics History Last Filed Vital Signs Vital Sign Reading Time Taken Comments Blood Pressure 148/92 11/16/2022 2:47 PM CDT manual after sitting 15 minutes Pulse 84 11/16/2022 2:21 PM CDT Temperature 37.1 C (98.8 F) 11/16/2022 2:21 PM CDT Respiratory Rate 16 11/16/2022 2:21 PM CDT Oxygen Saturation 96% 11/16/2022 2:2 1 PM CDT Inhaled Oxygen Concentration - - Weight 112.5 kg (248 lb) 11/16/2022 2:2 1 PM CDT Height 170.2 cm (5' 7 ) 11/16/2022 2:21 PM CDT Body Mass Index 38.84 11/16/2022 2:21 PM CDT Plan of Treatment Health Maintenance Due Date Last Done Comments Breast Cancer Screening-Mammogram 1965 Cervical Cancer Screening 1965 Colon Cancer Screening-Colonoscopy 1965 Depression Screening 1965 Hepatitis C Screening 1965 Hepatitis B Screening 01/23/1982 Regular Well Visit/Exam 18-64 01/23/1982 Pneumococcal vaccine <65 (1 of 2 - PCV) 01/23/1983 DTaP/Tdap/Td Vaccine (2 - Td or Tdap) 12/13/2021 12/14/2011 Covid-19 Vaccine (2023-2 5 season) 2023 01/29/2022, 09/28/2021, 08/15/2020, Additional history exists Influenza Vaccine (Season Ended) 2024 12/25/2021, 01/07/2019, 02/14/2016, Additional history exists Zoster Vaccine Completed 08/10/2021, 02/02/2021 Insurance [employer] PPO [place] Care Teams Apartment Leasing Specialist Relationship Specialty Start Date End Date Marquise Oneal MD [address] [place] [place] [address] PCP - General 10/06/14
--- OUTSIDE RECORDS SUMMARY | 2024-07-23 21:08 | XMS_ITS | Clinical Summary ---
Author Organization [facility] Care Team Providers Care Biofuels Production Manager Name Role Phone Unavailable Primary Care Provider Unavailabl e Social History Tobacco Use Types Packs/Day Years Used Date Smoking Tobacco: Never Assessed Comments Unknown Sex and Gender Information Value Date Recorded Sex Assigned at Not on file Legal Sex Female 12:14 AM CDT Gender Identity Not on file Sexual Orientation Not on file Plan of Treatment Health Maintenance Due Date Last Done Comments Hepatitis C Virus (HCV) Screening 1965 Pap Smear 01/23/1985 Cervical Cancer Screening (CCS) 01/23/1994 HPV/Cotest 01/23/1994 Colonoscopy 01/23/2009 Colorectal Cancer Screening 01/23/2009 Cologuard 01/23/2014 Immunochemical Fecal Occult Blood 01/23/2014 Mammogram 01/23/2014 Pneumococcal Immunization (5 0+ years) (1 of 1 - PCV) 01/23/2014 Zoster Immunization (1 of 2) 01/23/2014 Influenza Immunization (#1) 2023 02/02/2016 SARS-COV-2 Immunization ( season) 2023 09/28/2021, 08/15/2020, 07/18/2020 Respiratory Syncytial Virus (RSV) Immunization (Adult) (1 - 1-dose 75+ series) 01/23/2039 DTaP/Tdap/Td Immunization Discontinued 12/14/2011 TdaP Immunization Completed 12/14/2011 Hepatitis B Immunization Aged Out No longer eligible based on patient's age to complete this topic Meningococcal Immunization (ACWY) Aged Out No longer eligible based on patient's age to complete this topic Pneumococcal Immunization Combined Aged Out No longer eligible based on patient's age to complete this topic Rotavirus Immunization Aged Out No lo nger eligible based on patient's age to complete this topic
--- OUTSIDE RECORDS SUMMARY | 2024-07-23 21:08 | XMS_ITS | Referral Summary ---
Author Organization [facility] Address [facility] [place] [address] Care Team Providers Care Autopsy Assistant Name Role Phone Marquise Oneal MD Primary Care Provider [phone]- [phone] Allergies No known active allergies Medications predniSONE [...] Idiopathic chronic gout of multiple sites withou andrés nunos 11/08/2016 Immunosuppression 11/08/2016 Other proteinuria 02/13/2016 [...] Rheumatoid arthritis Adiposity 01/07/2013 Overview (07/14/2016): Obesity Social History Tobacco Use Types Packs/Day Years Used Date Smoking Tobacco: Former Cigarettes Q uit: 04/09/2007 Comments:Smoking History Pac ks/day: 0.5 Packs Alcohol Use Standard Drinks/Week Comments Yes 0 (1 standard drink = 0.6 oz pur e alcohol) Comments Unknown Sex and Gender Information Value Date Recorded Sex Assigned at Not on file 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
--- OUTSIDE RECORDS SUMMARY | 2024-07-23 21:08 | XMS_ITS | Clinical Summary ---
Author Organization [facility] [employer] Address [address] [facility] [place] [address] Care Team Providers Care Passenger Tire Inspector Name Role Phone Crista Carroll RN Unavailable [phone] Carmen Donahue Primary Care Provider [phone] Source Comments [facility] [employer],non-owned Affiliates and Associated Physician Practices is amultiple site organization consisting of ambulatory clinics and hospital sitesin [place], [place], [place] and [place]. This disclosure is being madepursuant to the Care Everywhere program and may not contain all information available regarding this patient. Last updated 17.[facility] [employer] Allergies No known active allergies Medications * Be aware that medications may not be up to date on this document. Alwaysverify current medications with the patient. levothyroxine (SYNTHROID) 50 MCG tablet Take 1 (one) tablet by mouth daily before breakfast Active lisinopril (PRINIVIL; ZESTRIL) 40 MG tablet Take 1 (one) tablet by mouth once daily 6 Active vitamin D, cholecalcifero l, 2000 UNITS tablet Take 1 (one) tablet by mouth once daily Active dilTIAZem ER (TIAZAC) 360 MG capsule Take 1 (one) capsule by mouth once daily 1 Active pravastatin (PRAVACHOL) 40 MG tablet Take 1 (one) tablet by mouth once daily 1 Active labetalol (NORMODYNE; TRANDATE) 300 MG tablet Take 1 (one) tablet by mouth once daily 2 Active traMADol (Ultram) 50 MG tabletIndicati ons:Acute gout due to renal impairment involving left foot Take 1 (one) tablet by mouth every 6 hours as needed for Pain 12 tablet 3 Active allopurinol (Zyloprim) 100 MG tabletIndicati ons:Gout Take 0.5 (one-half) tablet by mouth every 2 days for 90 days Dose decrease effective 11/23/2023 Reasons: Gout 23 tablet 5 09/01/19 25 Active predniSONE (Deltasone) 5 MG tabletIndicati ons:Rheumatoid arthritis involving multiple sites with positive rheumatoid factor (HCC) Take 2 (two) tablets by mouth every morning 60 tablet 5 Active upadacitinib ER (Rinvoq) 15 MG tabletIndicati ons:Rheumatoid Arthritis Take 1 (one) tablet by mouth once daily Note dose increase effective on 03/12/2024 Reasons: Rheumatoid Arthritis 30 tablet 1 5 Active upadacitinib ER (Rinvoq) 15 MG tabletIndicati ons:Rheumatoid Arthritis Take 1 (one) tablet by mouth once daily Note dose increase effective on 03/12/2024 Reasons: Rheumatoid Arthritis 30 tablet 1 5 07/12/19 25 Discontinu ed(Reorder ) upadacitinib ER (Rinvoq) 15 MG tabletIndicati ons:Rheumatoid Arthritis Take 1 (one) tablet by mouth once daily Note dose increase effective on 03/12/2024 Reasons: Rheumatoid Arthritis 30 tablet 1 5 07/22/19 25 Discontinu ed(Reorder ) predniSONE (Deltasone) 5 MG tablet Take 1 (one) tablet to 5 (five) tablets by mouth as needed 5 tabs all at once day 1 ANTONY, 4 tabs day 2 in a.m., 3 tabs in a.m. day 3, 2 tabs in a.m. day 4, 1 tab in a.m. day 5 for arthritis flare 15 tablet 5 07/17/19 25 Discontinu ed(Reorder ) Active Problems Problem Noted Date Diagnosed Date master dyer (current) use of janus kinase inhibito r 10/31/2023 Overview (10/31/2023): Tolerating Rinvoq well although with progressive reduction in renal status now with GFR down to 23 mL/minute will need close monitoring for GFR <15ml/minute. Chronic renal impairment, stage 4 (severe) 12/21 Idiopathic chronic gout of multiple sites withou t tophus 11/08/2016 Rheumatoid arthritis involvi ng multiple sites with positive rheumatoid factor 12/16/2015 Assessment & Plan (02/08/2023 11:05 AM CDT): Only took her 2nd Humira injection yesterday but was experiencing increasing right hand pain off prednisone 5 mg daily dose and took 10 mg dose last night. Right hand particularly remains swollen and tender especially at the wrist and several MCP and PIP finger joints with less soft tissue swelling involving the left hand. I discussed it might take additional 3-4 Humira injections before determining if this type of anti TNF biologic treatment will be effective for adequately controlling her rheumatoid arthritis symptoms. Fortunately she had a quite low Vectra DA score at 17 and would be at lower risk for rheumatoid related joint damage. Have recommended a restart of low-dose prednisone 5 mg q.a.m. at least until full effect of Humira can be identified and if favorable and feeling better then will be able to provide tapering instructions to discontinue steroid medication. Again reminded to avoid use of all NSAIDs including OTC NSAIDs such as ibuprofen and naproxen due to her advanced renal insufficiency. HTN (hypertension) 05/18/2015 Assessment & Plan (05/19/2015 5:42 AM NEUROLOGY TEACHER): Normotensive. - Hold triamterene/HCTZ and lisinopril in setting of HUGO - Continue amlodipine Assessment & Plan (05/18/2015 6:48 PM NEUROLOGY TEACHER): Normotensive. - Hold triamterene/HCTZ and lisinopril in setting of HGUO - Continue amlodipine Assessment & Plan (05/18/2015 2:01 AM NEUROLOGY TEACHER): - Hold triamterene/HCTZ and lisinopril because of renal failure, continue amlodipine Hyperglycemia 05/18/2015 Assessment & Plan (05/19/2015 5:42 AM NEUROLOGY TEACHER): Likely in the setting of high dose corticosteroid use. No previous history of DM. (+) RF of DM: obesity, steroid use. A1C elevated 6.8. Plan: - Low dose SSI -Diabetes education -Oral antihypergycemics once outpatient Assessment & Plan (05/18/2015 8:58 PM NEUROLOGY TEACHER): Likely in the setting of high dose corticosteroid use. No previous history of DM. (+) RF of DM: obesity, steroid use. A1C elevated 6.8. Plan: - Low dose SSI -Diabetes education -Oral antihypergycemics once outpatient Assessment & Plan (05/18/2015 2:03 AM NEUROLOGY TEACHER): - No previous history of DM, but has risk factors for DM like obesity, steroid use. Plan: - Check HgbA1c - Low dose SSI Hypothyroidism 05/18/2015 Assessment & Plan (05/19/2015 5:42 AM NEUROLOGY TEACHER): TSH normal. -Continue home dose of 50 mcg of levothyroxine Assessment & Plan (05/18/2015 6:50 PM NEUROLOGY TEACHER): TSH normal. -Continue home dose of 50 mcg of levothyroxine Assessment & Plan (05/18/2015 2:04 AM NEUROLOGY TEACHER): - TSH normal, continue home dose of 50 mcg of levothyroxine Resolved Problems Problem Noted Date Diagnosed Date Resolved Date master dyer (current) use of i mmunosuppressive biologic (Humira anti-TNF) 02/08/2023 10/31/2023 Assessment & Plan (02/08/2023 11:06 AM CDT): No initial problems with injection site reactions following the 1st 2 doses of Humira thus far. Immunosuppression 11/08/2016 10/19/2021 High risk medications (not a nticoagulants) long-term use 12/16/2015 12/21/2022 RA (rheumatoid arthritis) 05/18/2015 Assessment & Plan (05/19/2015 5:42 AM NEUROLOGY TEACHER): Bilateral symmetric small joint pain with some [...] Follow up with Rheumatology as outaptient - [place] prn for pain - PT/OT - Obtain medical records from Dr.Kimberley Olivares's office Assessment & Plan (05/18/2015 9:06 PM NEUROLOGY TEACHER): Bilateral symmetric small joint pain with some [...] Follow up with Rheumatology as outaptient - [place] prn for pain - PT/OT - Obtain medical records from Dr.Kimberley Olivares's office Assessment & Plan (05/18/2015 1:58 AM NEUROLOGY TEACHER): - Bilateral symmetric small joint pain with some swelling, significant morning stiffness and limitation of activities correlate with significant rheumatoid flare. We could appreciate joint swelling on the clinical exam which also correlates with the active RA. But lab markers for active disease, ESR and CRP were normal. Patient can be labelled as having a flare or active disease even without the laboratory criteria per the scoring systems for RA. - Patient is also dehydrated which could have aggravated the symptoms Plan: - Continue steroids (increase the prednisone dose from 10 to 15 mg daily), leflunomide - Follow up with Rheumatology as outaptient - [place] prn for pain - PT/OT - Obtain medical records from Dr.Kimberley Olivares's office HUGO (acute kidney injury) 05/18/2015 Assessment & Plan (05/19/2015 5:42 AM NEUROLOGY TEACHER): No prior history of renal disease. Likely due to dehydration in the setting of decrease PO intake with diuretic use. Plan: - S/P 1 L fluid bolus, maintenance fluids at 125 cc/hr - Hold triamterene/HCTZ and lisinopril - Check BMP daily and monitor urine output. Assessment & Plan (05/18/2015 9:07 PM NEUROLOGY TEACHER): No prior history of renal disease. Likely due to dehydration in the setting of decrease PO intake with diuretic use. Plan: - S/P 1 L fluid bolus, maintenance fluids at 125 cc/hr - Hold triamterene/HCTZ and lisinopril - Check BMP daily and monitor urine output. Assessment & Plan (05/18/2015 2:01 AM NEUROLOGY TEACHER): - No prior history of renal disease. She was taking NSAID's for pain intermittently for the past few years, but no recent NSAID intake. Likely etiology of renal failure is dehydration due to diuretics (Triamterene/HCTZ, lisinopril) in the context of decreased oral fluid intake. Plan: - s/p 1 L fluid bolus, maintenance fluids at 125 cc/hr - Hold triamterene/HCTZ and lisinopril - Check BMP daily and monitor urine output. SIRS (systemic inflammatory response syndrome) 05/18/2015 07/21/2021 Assessment & Plan (05/19/2015 5:42 AM NEUROLOGY TEACHER): SIRS 2/4- tachycardia and leukocytosis. Likely reactive to acute RA flare with dehydration. Lactic acid is uptrending likely due to poor perfusion in the setting of dehydration vs occult infection. Plan: - Hold the abx for now - Monitor for SSx of infection - blood cultures if she spikes fever - Iv fluids - Trend CBC Assessment & Plan (05/18/2015 9:08 PM NEUROLOGY TEACHER): SIRS 2/4- tachycardia and leukocytosis. Likely reactive to acute RA flare with dehydration. Lactic acid is uptrending likely due to poor perfusion in the setting of dehydration vs occult infection. Plan: - Hold the abx for now - Monitor for SSx of infection - blood cultures if she spikes fever - Iv fluids - Trend CBC Assessment & Plan (05/18/2015 1:55 AM NEUROLOGY TEACHER): - SIRS 2/4. Tachycardia and leukocytosis, presented with HR of 120 and WBC count of 15, but no fever or tachypnea. Tachycardia is likely due to dehydration and pain, and leukocytosis is due to steroids and hemoconcentration. - There is no evidence of infection, and the CRP/ESR normal. She received a dose of ciprofloxacin in the ED for suspected cystitis, but she has no urinary symptoms and UA sample has lot of epithelial cells. - Lactic acidosis (2.2, upper limit of normal is 2.1), likely due to poor perfusion in the setting of dehydration Plan: - Hold the abx, repeat UA, repeat lactic acid - watch for signs of infections - Hydration, repeat CBC tomorrow Erythrocytosis 05/18/2015 10/19/2021 Assessment & Plan (05/19/2015 5:43 AM NEUROLOGY TEACHER): Hb of 17.7 without baseline for comparison. Likely hemoconcentration. May have reactive erythrocytosis from underlying PAIGE with hypoxia. Plan: - Hydrate - TTrend CBC, if HgB remains high, will investigate other causes -Obtain medical records Assessment & Plan (05/18/2015 9:09 PM NEUROLOGY TEACHER): - Hb of 17.7 withoutbaseline for comparison. Likely hemoconcentration. May have reactive erythrocytosis from underlying PAIGE with hypoxia. Plan: - Hydrate - Trend hb -Obtain medical records Assessment & Plan (05/18/2015 2:00 AM NEUROLOGY TEACHER): - Hb of 17.7. We don't have a baseline value. - Likely due to hemoconcentration with probable underlying PAIGE. Plan: - Hydrate and assess her Hb tomorrow. If it still stays high, will proceed with further evaluation. - Obtain medical records Encounters Date Type Department Care Team Description 07/18/2024 Telephone [facility] - Rheumatology [address] [place] [address], [address] [place] [address] Emory Mehta, DO Medication Prior Auth Request 07/16/2024 Refill [facility] - Rheumatology [address] [place] [address], [address] [place] [address] Emory Mehta, MEDICATION REFILL 07/11/2024 Telephone [facility] - Rheumatology [address], [address] [place] [address] Emory Mehta, Pain Joint 07/11/2024 Orders Only [facility] [address], [address] [place] [address] Emory Mehta, intermediate (current) use of janus kinase inhibitor; Chronic renal impairment, stage 4 (severe) (HCC) 06/13/2024 Orders Only [place] [address], [address] [place] [address] Emory Mehta DO intermediate (current) use of janus kinase inhibitor; Chronic renal impairment, stage 4 (severe) 06/02/2024 Refill [facility] [address], [address] [place] [address] Emory Mehta, MEDICATION REFILL 05/16/2024 Orders Only [facility] [address], [address] [place] [address] Emory Mehta DO intermediate (current) use of janus kinase inhibitor; Chronic renal impairment, stage 4 (severe) from Last 3 Months Immunizations Immunization Administration Dates Next Due INFLUENZA VACCINE, QUADR. (F LUZONE; FLULAVAL; FLUARIX; AFLURIA QUADRIVALENT; 6MO+), 0.5 ML (IIV4) 05/19/2015 Family History Medical History Relation Name Comments Arthritis - Rheumatoid Mother Diabetes Mother Hypertension Mother Relation Name Status Comments Mother Social History Tobacco Use Types Packs/Day Years Used Date Smoking Tobacco: Never Smokeless Tobacco: Never Tobacco Cessation:Counseling Given: Yes Alcohol Use Standard Drinks/Week Comments No 0 (1 standard drink = 0.6 oz pur e alcohol) Comments No Sex and Gender Information Value Date Recorded Sex Assigned at Not on file Legal Sex Female 6:51 PM NEUROLOGY TEACHER Gender Identity Not on file Sexual Orientation Not on file Last Filed Vital Signs Vital Sign Reading Time Taken Comments Blood Pressure 124/78 03/12/2024 10:21 AM NEUROLOGY TEACHER Pulse 72 03/12/2024 10:21 AM NEUROLOGY TEACHER Temperature 36.7 C (98 F) 03/12/2024 10:21 AM NEUROLOGY TEACHER Respiratory Rate 16 03/12/2024 10:21 AM NEUROLOGY TEACHER Oxygen Saturation 97% 03/12/2024 10:21 AM NEUROLOGY TEACHER Inhaled Oxygen Concentration - - Weight 113.4 kg (250 lb) 03/12/2024 10:21 AM NEUROLOGY TEACHER Height 170.2 cm (5' 7 ) 03/12/2024 10:21 AM NEUROLOGY TEACHER Body Mass Index 39.16 03/12/2024 10:21 AM NEUROLOGY TEACHER Plan of Treatment Upcoming Encounters Date Type Department Care Team (Late st Contact Info) Description 09/11/2024 11:00 AM CDT Office Visit [facility] - Rheumatology [address], [address] [place] [address] Emory Mehta DO [address] [place] [address] Health Maintenance Due Date Last Done Comments COLOGUARD (AGES 45-75) - COLON CA SCREENING 1964 COLON MONITORING 1964 COLONOSCOPY - COLON CA SCREENING 1964 CT COLONOGRAPHY - COLON CA SCREENING 1964 Colorectal Cancer Screening 1964 FIT - COLON CA SCREENING 1964 FLEX SIG - COLON CA SCREENING 1964 MAMMOGRAM 1964 PAP SMEAR 1964 HIV SCREENING 01/23/1979 DTAP/TDAP/TD VACCINES (1 - Tdap) 01/23/1983 PNEUMOCOCCAL VACCINE 50+ (1 of 1 - PCV) 01/23/2014 ZOSTER VACCINE (1 of 2) 01/23/2014 COVID-19 VACCINE (2 - season) 2023 09/28/2021 DEPRESSION SCREENING 04/09/2024 INFLUENZA VACCINE (Season Ended) 2024 01/07/2019, 02/14/2016, 05/19/2015 SCREENING FOR DIABETES 06/24/2027 , 05/30/2024, 04/07/2024, Additional history exists Respiratory Syncytial Virus (RSV) Vaccine Pt: or over 60 yrs (1 - 1-dose 75+ series) 01/23/2039 HEPATITIS C SCREENING Completed 12/22/2022, 016 HEPATITIS B VACCINE Aged Out No longe r eligible based on patient's age to complete this topic HIB VACCINE Aged Out No longer eligi ble based on patient's age to complete this topic HPV VACCINE Aged Out No longer eligi ble based on patient's age to complete this topic MENINGOCOCCAL (Group B) VACCINE SHARED DECISION-MAKING Aged Out No longer eligible based on patient's age to complete this topic MENINGOCOCCAL GROUPS A/C/Y/W VACCINE Aged Out No longer eligible based on patient's age to complete this topic Procedures Procedure Name Priority Date/Time Associated Diagnosis Comments CBC W AUTO DIFFERENTIAL Routine 06/23/2024 1:41 PM CDT master dyer (current) use of janus kinase inhibitor COMPREHENSIVE METABOLIC PANEL Routine 06/23/2024 1:41 PM CDT master dyer (current) use of janus kinase inhibitor Chronic renal impairment, stage 4 (severe) CBC W AUTO DIFFERENTIAL Routine 05/30/2024 10:40 AM NEUROLOGY TEACHER intermediate (current) use of janus kinase inhibitor COMPREHENSIVE METABOLIC PANEL Routine 05/30/2024 10:40 AM NEUROLOGY TEACHER intermediate (current) use of janus kinase inhibitor Chronic renal impairment, stage 4 (severe) HEPATITIS C ANTIBODY Routine 12/22/2022 12:29 PM CDT Need for hepatitis C screening test from Last 3 Months or Most Recently Relevant to Health Maintenance Results * CBC WITH DIFFERENTIAL (06/23/2024 1:41 PM CDT) Only the most recent of2 resultswithin the time period is included. WBC 4.1 3.4 - 10.8 x10E3/uL [facility] ACCOUNT BILL RBC 4.16 3.77 - 5.28 x10E6/uL [facility] ACCOUNT BILL Hemoglobin 12.7 11.1 - 15.9 g/dL [facility] ACCOUNT BILL Hematocrit 39.7 34.0 - 46.6 % [facility] ACCOUNT BILL MCV 95 79 - 97 fL [facility] ACCOUNT BILL MCH 30.5 26.6 - 33.0 pg [facility] ACCOUNT BILL MCHC 32.0 31.5 - 35.7 g/dL [facility] ACCOUNT BILL RDW 13.4 11.7 - 15.4 % [facility] ACCOUNT BILL Platelet Count 166 150 - 450 x10E3/uL [facility] ACCOUNT BILL Granulocytes % 62 Not Estab. % [facility] ACCOUNT BILL Lymphocytes % 16 Not Estab. % [facility] ACCOUNT BILL Monocytes % 16 Not Estab. % [facility] ACCOUNT BILL Eosinophils % 5 Not Estab. % [facility] ACCOUNT BILL Basophils % 0 Not Estab. % [facility] ACCOUNT BILL Granulocytes Absolute 2.6 1.4 - 7.0 x10E3/uL [facility] ACCOUNT BILL Lymphocytes Absolute 0.7 0.7 - 3.1 x10E3/uL [facility] ACCOUNT BILL Monocytes Absolute 0.7 0.1 - 0.9 x10E3/uL [facility] ACCOUNT BILL Eosinophils Absolute 0.2 0.0 - 0.4 x10E3/uL [facility] ACCOUNT BILL Basophils Absolute 0.0 0.0 - 0.2 x10E3/uL [facility] ACCOUNT BILL Immature Granulocytes 1 Not Estab. % [facility] ACCOUNT BILL Immature Granulocytes Absolute 0.0 0.0 - 0.1 x10E3/uL [facility] ACCOUNT BILL Blood BLOOD SPECIMEN / Unknown 06/23/2024 1:41 PM CDT 06/23/2024 Narrative [facility] ACCOUNT BILL - 06/24/2024 7:09 AM CDT Performed at: 01 - [address] [id number] Burial Agent: Nicholas Hays PhD, Phone: [phone] us Emory Mehta DO LAB - HEMATOLOGY ORDERABLES Annelise bentley Result [facility] ACCOUNT BILL [address] [place] [address] * (ABNORMAL) COMPREHENSIVE METABOLIC PANEL (06/23/2024 1:41 PM CDT) Only the most recent of2 resultswithin the time period is included. Glucose 96 70 - 99 mg/dL [facility] ACCOUNT BILL BUN 27 8 - 27 mg/dL [facility] ACCOUNT BILL Creatinine 2.15(H) 0.57 - 1.00 mg/dL [facility] ACCOUNT BILL eGFR by CKD-EPI 26(L) >59 mL/min/1.7 3 [facility] ACCOUNT BILL BUN/Creatinine Ratio 13 12 - 28 [facility] ACCOUNT BILL Sodium 141 134 - 144 mmol/L [facility] ACCOUNT BILL Potassium 4.3 3.5 - 5.2 mmol/L [facility] ACCOUNT BILL Chloride 108(H) 96 - 106 mmol/L [facility] ACCOUNT BILL CO2 23 20 - 29 mmol/L [facility] ACCOUNT BILL Calcium 9.5 8.7 - 10.3 mg/dL [facility] ACCOUNT BILL Protein Total 6.8 6.0 - 8.5 g/dL [facility] ACCOUNT BILL Albumin 4.5 3.8 - 4.9 g/dL [facility] ACCOUNT BILL Globulin Total 2.3 1.5 - 4.5 g/dL [facility] ACCOUNT BILL Bilirubin Total 0.5 0.0 - 1.2 mg/dL [facility] ACCOUNT BILL Alkaline Phosphatase 64 44 - 121 IU/L [facility] ACCOUNT BILL AST 25 0 - 40 IU/L [facility] ACCOUNT BILL ALT 21 0 - 32 IU/L [facility] ACCOUNT BILL Blood BLOOD SPECIMEN / Unknown 06/23/2024 1:41 PM CDT 06/23/2024 Narrative [facility] ACCOUNT BILL - 06/24/2024 8:11 AM CDT Performed at: [address] - [address] [id number] Burial Agent: Nicholas Hays PhD, Phone: [phone] us Emory Mehta DO LAB - CHEMISTRY ORDERABLES Final Result [facility] ACCOUNT BILL [address] [place] [address] * HEPATITIS C ANTIBODY (12/22/2022 12:29 PM CDT) Pathologist [facility] Hepatitis C Antibody Non Reactive Non Reactive [facility] INSURANCE BILL Comment: HCV antibody alone does not differentiate between previously resolved infection and active infection. Equivocal and Reactive HCV antibody results should be followed up with an HCV RNA test to support the diagnosis of active HCV infection. Blood BLOOD SPECIMEN / Unknown 12/22/2022 12:29 PM CDT 12/22/2022 Narrative Resulting Agency Comment Lab [facility] performed at: [facility] [address] [phone] us Emoryrenee Mehta DO LAB - CHEMISTRY ORDERABLES Final Result [facility] INSURANCE BILL [address] [place] [address] from Last 3 Months or Most Recently Relevant to Health Maintenance Insurance ANTHEM ANTHEM Advance Directives * Full Code (Latest Code Status on File) Date Activated Date Inactivated Comments 05/17/2015 11:52 PM 05/19/2015 8:49 PM Care Teams Passenger Tire Inspector Relationship Specialty Start Date End Date Carmen Donahue PA [address] [place] [address] PCP - General Physician Software Configuration Engineer 10/19/21 Crista Carroll, RN Mold Stripper 05/18/15
[2024-07-23 21:11] VITALS: BP 154/80; PULSE 65; RESP 14; TEMP 36.8; O2SAT 99
--- NOTE | 2024-07-23 22:09 | ED.EXTPRO ---
HPI - Extremity Problem General Chief complaint: Extremity Problem,Nontraumatic Stated complaint: bilat shoulder pain Time Seen by Provider: 07/23/24 21:46 Source: patient Mode of arrival: ambulatory Limitations: no limitations History of Present Illness HPI Narrative: Patient is a 59-year-old female, with PMH of CKD, HTN, DM, who presents the ED with report of bilateral shoulder pain. Patient reports she has been having pain throughout bilateral shoulders to the past 2 weeks. Denies any fall or injury. She has history of rheumatoid arthritis and notes that she has been off of her Rinvoq therapy for the past 1 month due to insurance issues. She has been following with her primary for this and working to get her insurance to approve the medication again. Her PCP recently started her on prednisone therapy, 10 mg per day. Patient has not taken anything further for pain. Denies neck pain, chest pain, shortness of breath, numbness or tingling. Related Data Home Medications ?Medication ?Instructions ?Recorded ?Confirmed ?Last Taken ?Type cholecalciferol (vitamin D3) 50 50 mcg PO DAILY 07/21/20 06/18/24 Unknown History mcg (2,000 unit) capsule upadacitinib 15 mg tablet,extended 15 mg PO .every other day 12/27/23 06/18/24 Unknown History release 24 hr (Rinvoq) Allergies Allergy/AdvReac Type Severity Reaction Status Date / Time No Known Allergies Allergy Verified 07/23/24 21:07 Review of Systems Review of Systems: All systems reviewed & are unremarkable except as noted in HPI. All systems reviewed & are unremarkable except as noted in HPI and below PMFSH Past Medical History Medical History Proteinuria Mixed hyperlipidemia Diabetes mellitus Chronic kidney disease Hypertension Family History Family History Mother Diabetes mellitus Other Hypertension Social History Social History Smoking packs per day: 0.5 Smoking cigarettes per day: 10.0 Years smoked: 6 Smoking pack-years: 3.00 Smoking status: Former smoker Tobacco type: cigarettes Second hand tobacco smoke exposure: No Smoking end date: 04/09/92 Alcohol intake: never Substance use: never Substance use type: does not use Do You Feel Safe in your Home?: Yes Lack of Transportation: No Lack of Food: Never True Current Housing: I Have Housing Concerned About Future Housing: No Difficulty Paying Gas/Electric Bills: No Difficulty Paying for Meds: No Currently Unemployed: No Education: High School Diploma/GED Difficulty w/ Childcare or Family Care: No Gender identity (if verbalized by the patient): Female Spiritual care concerns: No Exam Narrative: GENERAL: Well appearing, obese with BMI of 38.5, non-toxic, in no acute distress. HEAD: Normocephalic, atraumatic. NECK: Supple, normal ROM, no midline spinal tenderness. RESPIRATORY: Airway patent, respirations nonlabored. Clear to auscultation bilaterally, no rales, rhonchi, wheezing. CARDIOVASCULAR: Regular rate and rhythm without murmurs, rubs, or gallops. Radial pulses strong and easily palpable MUSCULOSKELETAL: Moves all extremities. No gross deformities. Mild TTP over jigar anterior shoulder joints. Slight limitation in shoulder ROM past 90 degrees flexion/abduction. Sensation intact throughout extremities. Equal scenario writer strength bilaterally. SKIN: Warm, dry, normal color. NEURO: A&O X3. Speech clear. PSYCHIATRIC: Appropriate mood and affect. Normal interaction. Course Vital Signs Vital signs: Vital Signs Temperature 98.3 F 07/23/24 21:11 Pulse Rate 65 07/23/24 21:11 Respiratory Rate 14 07/23/24 21:11 Blood Pressure 154/80 H 07/23/24 21:11 Pulse Oximetry 99 07/23/24 21:11 Oxygen Delivery Room Air 07/23/24 21:11 Temperature 98.3 F 07/23/24 21:11 Pulse Rate 62 07/23/24 22:56 Respiratory Rate 16 07/23/24 22:56 Blood Pressure 149/96 H 07/23/24 22:56 Pulse Oximetry 97 07/23/24 22:56 Oxygen Delivery Room Air 07/23/24 21:11 MDM - Extremity (Nontraumatic) MDM Narrative Medical decision making narrative: Patient presented to ED with bilateral shoulder pain for the past 2 weeks, no injury. Reports she has been off of her normal RA medication for the past 1 month. No signs of neurologic or vascular compromise on physical examination. XR of L shoulder negative, R shoulder shows possible supraspinatous tendonitis. Discussed this with patient. Recommended continued follow-up with PCP for further management of RA, will refer to orthopedics for further evaluation as well. Patient unable to take anti-inflammatories due to kidney disease. Will prescribe short course of tramadol for home use for more severe pain. Patient given strict return precautions. She agrees with plan. Discharged in stable condition. Medical Records Attestation: I reviewed the patient's medical records. Imaging Data Attestation: I personally reviewed and interpreted this imaging study as follows: Radiologist's impression: ITS Impressions Shoulder X-Ray 07/23/24 22:16 IMPRESSION: No acute osseous abnormality left shoulder. Shoulder X-Ray 07/23/24 22:17 IMPRESSION: No acute osseous abnormality right shoulder. Degenerative changes in the area of the greater tuberosity which may indicate tendinosis of the supraspinatous. MRI is better for evaluation Discharge Plan Discharge Clinical Impression: Strain of left shoulder Qualifiers: Encounter type: initial encounter Qualified Code(s): S46.912A - Strain of unspecified muscle, fascia and tendon at shoulder and upper arm level, left arm, initial encounter Strain of right shoulder Qualifiers: Encounter type: initial encounter Qualified Code(s): S46.911A - Strain of unspecified muscle, fascia and tendon at shoulder and upper arm level, right arm, initial encounter Patient Disposition: Home Condition: Stable Instructions: Antibiotic Form, Rotator Cuff Injury (ED), Rotator Cuff Tendinitis (ED), Shoulder Sprain (ED) Additional Instructions: Continue Tylenol as needed for pain, ice to areas of pain. Tramadol as needed for more severe pain. Follow-up closely with your primary care doctor and orthopedics for further evaluation. Return to the ED if you experience worsening or severe pain, injury, numbness of arms, chest pain, or any other symptoms of concern. Patient Language: Tuvaluan Prescriptions: New tramadol 50 mg tablet 50 mg PO Q6H PRN (Reason: pain) Qty: 10 0RF No Action Mounjaro 2.5 mg/0.5 mL pen injector 2.5 mg subcut WEEKLY Qty: 2 0RF Rx Instructions: for 4 weeks cholecalciferol (vitamin D3) 50 mcg (2,000 unit) capsule 50 mcg PO DAILY tramadol 50 mg tablet 50 mg PO Q6H PRN (Reason: pain) Qty: 30 0RF Rinvoq 15 mg tablet extended release 24 hr 15 mg PO .every other day labetalol 300 mg tablet 300 mg PO Q12H Qty: 180 3RF diltiazem HCl 360 mg capsule,extended release 24 hr See Rx Instructions .ROUTE .COMPLEX Qty: 30 11RF Dose Instruction: TAKE 1 CAPSULE(360 MG) BY MOUTH EVERY DAY Rx Instructions: TAKE 1 CAPSULE(360 MG) BY MOUTH EVERY DAY levothyroxine 50 mcg tablet See Rx Instructions .ROUTE .COMPLEX Qty: 90 1RF Dose Instruction: TAKE 1 TABLET(50 MCG) BY MOUTH EVERY DAY Rx Instructions: TAKE 1 TABLET(50 MCG) BY MOUTH EVERY DAY lisinopril 40 mg tablet 60 mg PO DAILY Qty: 135 3RF Rx Instructions: rosuvastatin 20 mg tablet 20 mg PO DAILY Qty: 90 0RF Follow-up/Referrals: Luba Katz MD [Primary Care Provider] - Dick Mccullough MD [Physician] - (ORTHOPEDICS) Time of Disposition: 22:43
--- OUTSIDE RECORDS SUMMARY | 2024-07-23 22:20 | XMS_ITS | Clinical Summary ---
Author Organization [facility] Address [address] [place] [phone] Phone Care Team Providers Care Silver Buffer Name Role Phone Timothy Sadler MD Primary Care Provider [phone] Allergies No known active allergies Medications metFORMIN [...] Follow up with Rheumatology as outaptient - Girard prn for pain - PT/OT - Obtain [...] on file Legal Sex Female 9:20 AM [facility] Gender Identity Not on file Sexual Orientation [...] (Season Ended) 2024 02/14/20 16, 05/19/2015 Insurance [facility] Care Teams Silver Buffer Relationship Specialty Start Date End Date Timothy Sadler MD [address] [id number] PCP - General Family Medicine 11/18/20
--- OUTSIDE RECORDS SUMMARY | 2024-07-23 22:20 | XMS_ITS | Referral Summary ---
Author Organization [facility] Address 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
--- OUTSIDE RECORDS SUMMARY | 2024-07-23 22:21 | XMS_ITS | Clinical Summary ---
Author Organization [facility] Address [address] [facility] [place] [address] Care Team Providers Care Electrician Locomotive Name Role Phone Crista Carroll RN Unavailable [phone] Carmen Donahue Primary Care Provider [phone] Source Comments [facility],non-owned Affiliates and Associated Physician Practices is amultiple site organization consisting of ambulatory clinics and hospital sitesin [place], [place], [place] and [place]. This disclosure is being madepursuant to the Care Everywhere program and may not contain all information available regarding this patient. 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 - Hold triamterene/HCTZ and lisinopril in setting of HUGO - Continue amlodipine Assessment & Plan (05/18/2015 6:48 PM [employer]): Normotensive. - Hold triamterene/HCTZ and lisinopril in setting of HUGO - Continue amlodipine Assessment & Plan (05/18/2015 2:01 AM [employer]): - Hold triamterene/HCTZ and lisinopril because of renal failure, continue amlodipine Hyperglycemia 05/18/2015 Assessment & Plan (05/19/2015 5:42 AM [employer]): Likely in the setting of high dose corticosteroid use. No previous history of DM. (+) RF of DM: obesity, steroid use. A1C elevated 6.8. Plan: - Low dose SSI -Diabetes education -Oral antihypergycemics once outpatient Assessment & Plan (05/18/2015 8:58 PM [employer]): Likely in the setting of high dose corticosteroid use. No previous history of DM. (+) RF of DM: obesity, steroid use. A1C elevated 6.8. Plan: - Low dose SSI -Diabetes education -Oral antihypergycemics once outpatient Assessment & Plan (05/18/2015 2:03 AM [employer]): - No previous history of DM, but has risk factors for DM like obesity, steroid use. Plan: - Check HgbA1c - Low dose SSI Hypothyroidism 05/18/2015 Assessment & Plan (05/19/2015 5:42 AM [employer]): TSH normal. -Continue home dose of 50 mcg of levothyroxine Assessment & Plan (05/18/2015 6:50 PM [employer]): TSH normal. 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 Immunosuppression 11/08/2016 10/19/2021 High risk medications (not a nticoagulants) long-term use 12/16/2015 12/21/2022 RA (rheumatoid arthritis) 05/18/2015 Assessment & Plan (05/19/2015 5:42 AM [employer]): Bilateral symmetric small joint pain with some [...] Follow up with Rheumatology as outaptient - Olmitz prn for pain - PT/OT - Obtain medical records from Dr.Kimberley Olivares's office Assessment & Plan (05/18/2015 9:06 PM [employer]): Bilateral symmetric small joint pain with some [...] Follow up with Rheumatology as outaptient - Olmitz prn for pain - PT/OT - Obtain medical records from Dr.Kimberley Olivares's office Assessment & Plan (05/18/2015 1:58 AM [employer]): - Bilateral symmetric small joint pain with [...] Follow up with Rheumatology as outaptient - Olmitz prn for pain - PT/OT - Obtain medical records from Dr.Kimberley Olivares's office HUGO (acute kidney injury) 05/18/2015 Assessment & Plan (05/19/2015 5:42 AM [employer] [employer]): No prior history of renal disease. Likely due to dehydration in the setting of decrease PO intake with diuretic use. Plan: - S/P 1 L fluid bolus, maintenance fluids at 125 cc/hr - Hold triamterene/HCTZ and lisinopril - Check BMP daily and monitor urine output. Assessment & Plan (05/18/2015 9:07 PM [employer]): No prior history of renal disease. Likely due to dehydration in the setting of decrease PO intake with diuretic use. Plan: - S/P 1 L fluid bolus, maintenance fluids at 125 cc/hr - Hold triamterene/HCTZ and lisinopril - Check BMP daily and monitor urine output. Assessment & Plan (05/18/2015 2:01 AM [employer]): - No prior history of renal disease. [...] 07/21/2021 Assessment & Plan (05/19/2015 5:42 AM [employer]): SIRS 2/4- tachycardia and leukocytosis. Likely reactive to acute RA flare with dehydration. Lactic acid is uptrending likely due to poor perfusion in the setting of dehydration vs occult infection. Plan: - Hold the abx for now - Monitor for SSx of infection - blood cultures if she spikes fever - Iv fluids - Trend CBC Assessment & Plan (05/18/2015 9:08 PM [employer]): SIRS 2/4- tachycardia and leukocytosis. Likely reactive to acute RA flare with dehydration. Lactic acid is uptrending likely due to poor perfusion in the setting of dehydration vs occult infection. Plan: - Hold the abx for now - Monitor for SSx of infection - blood cultures if she spikes fever - Iv fluids - Trend CBC Assessment & Plan (05/18/2015 1:55 AM [employer] [employer]): - SIRS 2/4. Tachycardia and leukocytosis, presented [...] 10/19/2021 Assessment & Plan (05/19/2015 5:43 AM [employer] [employer] [facility]): Hb of 17.7 without baseline for comparison. Likely hemoconcentration. May have reactive erythrocytosis from underlying PAIGE with hypoxia. Plan: - Hydrate - TTrend CBC, if HgB remains high, will investigate other causes -Obtain medical records Assessment & Plan (05/18/2015 9:09 PM [employer] [employer] [facility]): - Hb of 17.7 withoutbaseline for comparison. Likely hemoconcentration. May have reactive erythrocytosis from underlying PAIGE with hypoxia. Plan: - Hydrate - Trend hb -Obtain medical records Assessment & Plan (05/18/2015 2:00 AM [employer] [employer] [facility]): - Hb of 17.7. We don't have a baseline value. - Likely due to hemoconcentration with probable underlying PAIGE. Plan: - Hydrate and assess her Hb tomorrow. If it still stays high, will proceed with further evaluation. - Obtain medical records Encounters Date Type Department Care Team Description 07/18/2024 Telephone [facility] - Rheumatology [address] [place] [address], [address] [place] [address] Emory Mehta, DO Medication Prior Auth Request 07/16/2024 Refill [facility] - Rheumatology [address] [place] [address], [address] [place] [address] Emory Mehta, MEDICATION REFILL 07/11/2024 Telephone [facility] - Rheumatology [address], [address] [place] [address] Emory Mehta, Pain Joint 07/11/2024 Orders Only [facility] [address], [address] [place] [address] Emory Mehta, alf (current) use of janus kinase inhibitor; Chronic renal impairment, stage 4 (severe) (HCC) 06/13/2024 Orders Only [facility] [address], [address] [place] [address] Emory Mehta DO alf (current) use of janus kinase inhibitor; Chronic renal impairment, stage 4 (severe) 06/02/2024 Refill [facility] [address], [address] [place] [address] Emory Mehta, MEDICATION REFILL 05/16/2024 Orders Only [facility] [address], [address] [place] [address] Emory Mehta DO alf (current) use of janus kinase inhibitor; Chronic [...] on file Legal Sex Female 6:51 PM [employer] Gender Identity Not on file Sexual Orientation Not on file Last Filed Vital Signs Vital Sign Reading Time Taken Comments Blood Pressure 124/78 03/12/2024 10:21 AM [employer] [facility] Pulse 72 03/12/2024 10:21 AM [employer] [employer] [facility] Temperature 36.7 C (98 F) 03/12/2024 10:21 AM [employer] [employer] [facility] Respiratory Rate 16 03/12/2024 10:21 AM [employer] [employer] [facility] Oxygen Saturation 97% 03/12/2024 10:21 AM [employer] [employer] [facility] Inhaled Oxygen Concentration - - Weight 113.4 kg (250 lb) 03/12/2024 10:21 AM [employer] [facility] Height 170.2 cm (5' 7 ) 03/12/2024 10:21 AM [employer] [employer] [facility] Body Mass Index 39.16 03/12/2024 10:21 AM [employer] [employer] Plan of Treatment Upcoming Encounters Date Type Department Care Team (Late st Contact Info) Description 09/11/2024 11:00 AM CDT Office Visit [facility] - Rheumatology [address] [facility], [address] [place] [address] Emory Mehta DO [address] [facility] [address] [place] [address] Health Maintenance Due Date Last [...] AUTO DIFFERENTIAL Routine 06/23/2024 1:41 PM CDT 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 COMPREHENSIVE METABOLIC PANEL Routine 06/23/2024 1:41 PM CDT 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 Chronic renal impairment, stage 4 (severe) CBC W AUTO DIFFERENTIAL Routine 05/30/2024 10:40 AM [employer] [employer] alf (current) use of janus kinase inhibitor COMPREHENSIVE METABOLIC PANEL Routine 05/30/2024 10:40 AM [employer] alf (current) use of janus kinase inhibitor Chronic [...] 7:09 AM CDT Performed at: 01 - [address] [id number] Parks Recreation Coordinator: Nicholas Hays PhD, Phone: [phone] us Emory Mehta DO LAB - HEMATOLOGY ORDERABLES Annelise bentley Result [facility] ACCOUNT BILL [address] [place] [address] * (ABNORMAL) COMPREHENSIVE METABOLIC PANEL (06/23/2024 1:41 [...] 8:11 AM CDT Performed at: [address] [id number] Parks Recreation Coordinator: Nicholas Hays PhD, Phone: [phone] us Emory Mehta DO LAB - CHEMISTRY ORDERABLES Final Result [facility] ACCOUNT BILL [address] [place] [address] * HEPATITIS C ANTIBODY (12/22/2022 12:29 PM CDT) Pathologist [facility] Hepatitis C Antibody Non Reactive Non Reactive [...] Resulting Agency Comment Lab Testing performed at: [facility] [address] [facility] [id number] [place] Emoryrenee Mehta DO LAB - CHEMISTRY ORDERABLES Final Result [facility] INSURANCE BILL [address] [place] [address] from Last 3 Months or Most Recently Relevant to Health Maintenance Insurance ANTHEM ANTHEM Advance Directives * Full Code (Latest Code Status on File) Date Activated Date Inactivated Comments 05/17/2015 11:52 PM 05/19/2015 8:49 PM Care Teams Electrician Locomotive Relationship Specialty Start Date End Date Carmen Donahue PA [address] [place] [address] PCP - General Physician Chucker 10/19/21 Crista Carroll, RN Salon Shampoo Assistant 05/18/15
--- OUTSIDE RECORDS SUMMARY | 2024-07-23 22:21 | XMS_ITS | Clinical Summary ---
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
--- OUTSIDE RECORDS SUMMARY | 2024-07-23 22:21 | XMS_ITS | Clinical Summary ---
Author Organization [facility] Care Team Providers Care Co Chairman Name Role Phone Unavailable Primary Care Provider [...]
[2024-07-23] MEDS: ACETAMINOPHEN 500 MG TABLET 1000 MG PO (22:30)
[2024-07-23 22:56] VITALS: BP 149/96; PULSE 62; RESP 16; O2SAT 97
== END 2024-07-23 22:57 | disposition home or self-care (01) ==
LOC: ANHED 22:19
PROVIDERS: Emergency Provider Physician Assistant; PCP Family Medicine
DX: S46.912A Strain of unspecified muscle, fascia and tendon at shoulder and upper arm level, left arm, initial encounter (principal); S46.911A Strain of unspecified muscle, fascia and tendon at shoulder and upper arm level, right arm, initial encounter; E11.22 Type 2 diabetes mellitus with diabetic chronic kidney disease; I12.9 Hypertensive chronic kidney disease with stage 1 through stage 4 chronic kidney disease, or unspecified chronic kidney disease; N18.9 Chronic kidney disease, unspecified; E78.2 Mixed hyperlipidemia; M06.9 Rheumatoid arthritis, unspecified; Z87.891 Personal history of nicotine dependence; Z79.85 Long-term (current) use of injectable non-insulin antidiabetic drugs; Z79.899 Other long term (current) drug therapy; X58.XXXA Exposure to other specified factors, initial encounter
CPT/HCPCS: 73030; 99284; A9270